=== PATIENT | male | born 1950 | race Caucasian/White ===

== ENCOUNTER 2019-06-05 17:14 | Outpatient (CLI) | payer MEDICARE, OTHER, SELFPAY ==
--- NOTE | ~2019-06-05 | XR_ITS ---
EXAMINATION: XR chest 2V DATE: 06/05/2019 17:33 INDICATION: Upper respiratory tract infection presenting with cough and shortness of breath. TECHNIQUE: frontal and lateral views of the chest were obtained. COMPARISON: Chest radiograph dated 03/24/[address] dated 05/13/2017 FINDINGS: Mild upper lobe predominant emphysema with mild right apical pleural-parenchymal scarring. No focal a irspace opacities, pulmonary edema, pleural effusion or pneumothorax. The cardiomediastinal silhouett e is normal. Visualized bones and soft tissues are unremarkable. IMPRESSION: 1. Emphysema. No acute cardiopulmonary disease. Reviewed, dictated and finalized at location A. 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
== END 2019-06-05 17:15 | disposition home or self-care (01) ==
PROVIDERS: PCP Internal Medicine; Visit Provider Nurse Practitioner Family
DX: J06.9 Acute upper respiratory infection, unspecified (principal)
CPT/HCPCS: 71046

== ENCOUNTER 2019-07-18 09:55 | Outpatient (CLI) | payer MEDICARE, OTHER, SELFPAY ==
--- NOTE | ~2019-07-18 | CT_ITS ---
EXAMINATION: CT lung screening EXAM DATE: 07/18/2019 10:46 INDICATION: Personal history of nicotine dependence. TECHNIQUE: Spiral low dose CT of the chest without contrast. Axial, coronal and sagittal images were reviewed. The dose-length product (DLP) for this examination was 179.69 mGy-cm. The exposure was t ailored according to patient size (auto mA exposure control), and iterative reconstruction (ASIR) was used as additional dose reduction technique. Comparison is made to prior examination from 05/13/2017. FINDINGS: There is moderate emphysema. Previously seen 3 mm nodule is now a punctate one or 2 mm nod ule, post infectious granuloma. There are other small opacities consistent with postinfectious residu a. Tracheobronchial tree is patent. There is no mediastinal, hilar or axillary lymphadenopathy. There are no pleural or pericardial effusions. There is no pneumothorax. Heart normal in size. There is mild coronary arterial calcification, arterial sclerosis. Upper abdomen is unremarkable. T here is mild thoracic spondylosis without osteoblastic or osteolytic lesions identified. IMPRESSION: Lung-RADS category 2, benign appearance or behavior (<1% chance of malignancy); recommend continued LDCT screening in 1 year. Reviewed, dictated and finalized at location B.
--- NOTE | ~2019-07-18 | XR_ITS ---
EXAMINATION: XR chest 2V EXAM DATE: 07/18/2019 10:16 INDICATION: Shortness of breath, cough. COPD. TECHNIQUE: Frontal and lateral projections of the chest obtained and reviewed. Comparison is made to prior examination from 06/05/2019. FINDINGS: Moderate chronic hyperinflation. Mild biapical scarring. The lungs are otherwise clear. T here are no pleural effusions. The cardiomediastinal silhouette is within normal limits. There is n o pneumothorax suspected. The bones and soft tissues are unremarkable. There is no significant inte rval change. IMPRESSION: 1. No acute cardiopulmonary findings. 2. Hyperinflation. Reviewed, dictated and finalized at location B.
[2019-07-18 10:06] LABS: Basophils Absolute Auto 0.06 K/mm3 (0.00-0.10); Eosinophils Absolute Auto 0.22 K/mm3 (0.02-0.50); Eosinophils Percent Auto 3.8 % (1.0-6.0); Hematocrit 44.6 % (37.0-46.0); Immature Granulocyte Absolute 0.01 K/mm3 (0.00-0.00); Immature Granulocyte Percent A 0.2 % (0.0-0.0); Lymphocytes Absolute Auto 1.69 K/mm3 (1.10-4.50); Lymphocytes Percent Auto 28.9 % (18.0-42.0); Mean Corpuscular HGB Conc 33.6 g/dL (32.0-36.0); Mean Corpuscular Hemoglobin 31.8 pg (27.0-31.0); Mean Corpuscular Volume 94.7 fL (78.0-102.0); Mean Platelet Volume 9.2 fl (8.7-11.0); Monocytes Absolute Auto 0.56 K/mm3 (0.10-0.90); Monocytes Percent Auto 9.6 % (2.0-11.0); Neutrophils Absolute Auto 3.3 K/mm3 (1.7-7.2); Neutrophils Percent Auto 56.5 % (50.0-70.0); Platelet Count Result 248 K/mm3 (150-420); Red Blood Count 4.71 M/mm3 (4.70-6.10); Red Cell Distribution Width 12.6 % (11.6-14.4); White Blood Count 5.8 K/mm3 (4.8-10.8)
[2019-07-18 10:36] LABS: BNP 36.3 pg/mL (0-100)
[2019-07-18 11:05] LABS: Alanine Aminotransferase 20 U/L (16-63); Albumin Level 3.6 g/dL (3.4-5.0); Alkaline Phosphatase 108 U/L (46-116); Anion Gap 14.5 mmol/L (7-16); Aspartate Amino Transferase 17 U/L (15-37); Bilirubin,Total 0.5 mg/dL (0.00-1.00); Blood Urea Nitrogen 16 mg/dL (7-18); Calcium 9.1 mg/dL (8.5-10.1); Carbon Dioxide 27 mmol/L (21-32); Chloride 104 mmol/L (98-108); Estimated Glomerular Filt Rate > 60; Glucose 117 mg/dL (70-99); Osmolality Calculated 294 mOsm/kg (285-295); Potassium 4.5 mmol/L (3.5-5.1); Sodium 141 mmol/L (136-145)
== END 2019-07-18 09:56 | disposition home or self-care (01) ==
PROVIDERS: PCP Internal Medicine; Visit Provider Internal Medicine
DX: Z12.2 Encounter for screening for malignant neoplasm of respiratory organs (principal); Z87.891 Personal history of nicotine dependence; R06.00 Dyspnea, unspecified; R05 Cough
CPT/HCPCS: 36415; 71046; 80053; 83880; 85025; G0297

== ENCOUNTER 2019-09-16 10:10 | Outpatient (CLI) | payer MEDICARE, OTHER, SELFPAY | END 2019-09-16 10:11 | disposition home or self-care (01) | PROVIDERS: PCP Internal Medicine; Visit Provider Internal Medicine | DX: J44.9 Chronic obstructive pulmonary disease, unspecified (principal) | CPT/HCPCS: 94060; 94726; 94729 ==

== ENCOUNTER 2020-04-07 12:21 | Outpatient (CLI) | payer MEDICARE, OTHER, SELFPAY ==
--- NOTE | ~2020-04-07 | US_ITS ---
EXAMINATION: US carotid duplex BI EXAM DATE: 04/07/2020 13:08 INDICATION: Carotid stenosis. TECHNIQUE: Grayscale, color and pulsed Doppler images of the cervical carotid arteries were obtained . The degree of vessel stenosis is placed in one of the following categories: normal, <50% stenosis, 50-69% stenosis, >=70% stenosis but less than near-occlusion, near-occlusion, or occlusion. Note that percent stenosis relative to normal distal artery lumen diameter is indirectly measured from velocit y measurements as described by Collin, et al. Radiology 2003; 229:340-346. There is no prior study fo r comparison. FINDINGS: RIGHT SIDE: Right common carotid artery peak systolic velocity (PSV in cm/s): 98 Right bulb/internal carotid artery peak systolic velocity (PSV in cm/s): 86 Right internal carotid artery end diastolic velocity (EDV in cm/s): 34 Right ICA/CCA peak systolic ratio: 0.9 Right external carotid artery peak systolic velocity (PSV in cm/s): 97 Right vertebral artery antegrade flow: yes There is mild carotid bulb plaque. Velocity and Doppler waveforms in the common and internal carotid arteries is normal. LEFT SIDE: Left common carotid artery peak systolic velocity (PSV in cm/s): 76 Left bulb/internal carotid artery peak systolic velocity (PSV in cm/s): 77 Left internal carotid artery end diastolic velocity (EDV in cm/s): 36 Left ICA/CCA peak systolic ratio: 1.0 Left external carotid artery peak systolic velocity (PSV in cm/s): 69 Left vertebral artery antegrade flow: yes There is mild carotid bulb plaque. Velocity and Doppler waveforms in the common and internal carotid arteries is normal. IMPRESSION: 1. Less than 50 percent stenosis in the right internal carotid artery. 2. Less than 50 percent stenosis in the left internal carotid artery. Reviewed, dictated and finalized at location B. R REBUILDER
== END 2020-04-07 12:22 | disposition home or self-care (01) ==
LOC: CHSIMG 12:24
PROVIDERS: PCP Internal Medicine; Visit Provider Internal Medicine
DX: I65.23 Occlusion and stenosis of bilateral carotid arteries (principal)
CPT/HCPCS: 93880

== ENCOUNTER 2021-01-27 09:48 | Outpatient (CLI) | payer MEDICARE, OTHER, SELFPAY ==
--- NOTE | ~2021-01-27 | CT_ITS ---
EXAMINATION: CT lung screening DATE: 01/27/2021 10:27 INDICATION: History of tobacco dependence TECHNIQUE: Computed tomography (CT) of the chest was performed without intravenous contrast. The dose -length product was 183.69 mGy-cm. Automated exposure control and iterative reconstruction technique were employed. COMPARISON: CT dated 07/18/2019 FINDINGS: There are peripheral interstitial changes with areas of interlobular septal thickening and reticular nodularity, likely chronic pulmonary fibrosis. There is emphysema. No endobronchial lesions . There are new areas of focal groundglass opacification particularly in the right lower lobe which m ay relate to chronic interstitial fibrosis, although some acute superimposed infection is not exclude d no endobronchial lesions. There is a subsolid nodule with solid component measuring 5 mm in the rig ht lower lobe which is new compared with prior examination. No endobronchial lesions. IMPRESSION: 1. Lung-RADS category 3: Probably benign. Further evaluation is recommended with noncontrast low-dose chest CT in 6 months. Reviewed, dictated and finalized at location B. IMPRESSION: 1. Lung-RADS category 3: Probably benign. Further evaluation is recommended wit h noncontrast low-dose chest CT in 6 months.
== END 2021-01-27 09:49 | disposition home or self-care (01) ==
LOC: CHSIMG 09:50
PROVIDERS: PCP Internal Medicine; Visit Provider Internal Medicine
DX: Z12.2 Encounter for screening for malignant neoplasm of respiratory organs (principal); Z87.891 Personal history of nicotine dependence
CPT/HCPCS: 71271

== ENCOUNTER 2022-04-07 08:25 | Outpatient (CLI) | payer MEDICARE, OTHER, SELFPAY ==
--- NOTE | ~2022-04-07 | US_ITS ---
Procedure: Duplex Doppler examination of the bilateral carotids. Indication: Carotid stenosis Technique: Real time, color-flow and pulse wave Doppler examination of the bilateral carotids was performed. Findings: Esposito scale ultrasonography of the right neck demonstrated no significant plaque. There was demonstrat ion of normal color-flow and Doppler waveforms within the right common, internal and external carotid arteries. The peak systolic velocities in the right common, internal and external carotid arteries w ere demonstrated to be 85 cm/sec, 54 cm/sec and 69 cm/sec respectively. The right ICA/CCA ratio was 1 .0.The proximal right internal carotid artery demonstrates 0% stenosis relative to the normal distal artery lumen diameter. Esposito scale sonography of the left neck demonstrated small calcified plaque at the origin of the left internal carotid artery. There was demonstration of normal color-flow and wave forms within the left common, internal and external carotid arteries. The peak systolic velocities in the left common, inte rnal and external carotid arteries were demonstrated to be 87cm/sec, 67 cm/sec and 71 cm/sec respecti vely. The left ICA/CCA ratio was 1.4. The proximal left internal carotid artery demonstrates 10% sten osis relative to the normal distal artery lumen diameter. There was antegrade flow demonstrated in the bilateral vertebral arteries. Impression: No hemodynamically significant stenosis of the bilateral internal carotid arteries. Antegrade flow in the bilateral vertebral arteries. Note: The methodology used is an indirect measurement validated against a direct method (such as the NASCET criteria) that compares diameters at the stenosis to the distal ICA. Reviewed, dictated and finalized at location . F BUSINESS OFFICER Impression: No hemodynamically significant stenosis of the bilateral internal carotid arter ies. Antegrade flow in the bilateral vertebral arteries. Note: The methodology used is an indirect measurement validated against a direct meth od (such as the NASCET criteria) that compares diameters at the stenosis to the distal ICA.
== END 2022-04-07 08:26 | disposition home or self-care (01) ==
LOC: CHSIMG 08:27
PROVIDERS: PCP Internal Medicine; Visit Provider Internal Medicine
DX: I65.29 Occlusion and stenosis of unspecified carotid artery (principal)
CPT/HCPCS: 93880

== ENCOUNTER 2022-08-23 09:09 | Outpatient (CLI) | payer MEDICARE, OTHER, SELFPAY ==
--- NOTE | ~2022-08-23 | US_ITS ---
US arterial ankle brachial ind INDICATION: Peripheral vascular disease TECHNIQUE: Segmental pressures and plethysmographic and Doppler waveforms of the brachial and lower e xtremity arteries were obtained. COMPARISON: None. FINDINGS: Right and left brachial artery pressures of 127 mm Hg and 1:30 mm Hg, respectively, are concordant (n ormal difference <= 30 mmHg). The right ankle-brachial index (ROSY) is 1.08 (normal >= 0.9-1.0). The right great toe-brachial index (TBI) is 0.77 (normal >= 0.60). The left ROSY is 1.09. The left TBI is 0.77. IMPRESSION: 1. Normal bilateral ankle and toe brachial indices. Reviewed, dictated and finalized at location L.
--- NOTE | ~2022-08-23 | XR_ITS ---
XR chest 2V 08/23/2022 12:24 Indication: COPD exacerbation. Dyspnea. Procedure: PA and lateral views of the chest Comparison: 07/18/2019 Findings: Right upper lobe airspace consolidation, consistent with pneumonia. Heart size normal. Ther e is mild chronic interstitial lung disease. No pleural effusion or pneumothorax. No acute osseous ab normality. Impression: 1: Right upper lobe pneumonia. Reviewed, dictated and finalized at location L. Impression: 1: Right upper lobe pneumonia.
[2022-08-23 12:14] LABS: Basophils Absolute Auto 0.04 K/mm3 (0.00-0.10); Basophils Percent Auto 0.3 % (0.0-1.0); Eosinophils Absolute Auto 0.01 K/mm3 (0.02-0.50); Eosinophils Percent Auto 0.1 % (1.0-6.0); Hematocrit 39.2 % (37.0-46.0); Hemoglobin 13.3 g/dL (12.4-15.3); Immature Granulocyte Absolute 0.06 K/mm3 (0.00-0.00); Immature Granulocyte Percent A 0.5 % (0.0-0.0); Lymphocytes Absolute Auto 1.44 K/mm3 (1.10-4.50); Lymphocytes Percent Auto 11.6 % (18.0-42.0); Mean Corpuscular HGB Conc 33.9 g/dL (32.0-36.0); Mean Corpuscular Hemoglobin 33.2 pg (27.0-31.0); Mean Corpuscular Volume 97.8 fL (78.0-102.0); Mean Platelet Volume 9.1 fl (8.7-11.0); Monocytes Absolute Auto 1.07 K/mm3 (0.10-0.90); Monocytes Percent Auto 8.6 % (2.0-11.0); Neutrophils Absolute Auto 9.8 K/mm3 (1.7-7.2); Neutrophils Percent Auto 78.9 % (50.0-70.0); Platelet Count Result 261 K/mm3 (150-420); Red Blood Count 4.01 M/mm3 (4.70-6.10); White Blood Count 12.5 K/mm3 (4.8-10.8)
[2022-08-23 12:35] LABS: Alanine Aminotransferase 75 U/L (16-63); Albumin Level 2.6 g/dL (3.4-5.0); Alkaline Phosphatase 95 U/L (46-116); Anion Gap 11 mmol/L (8-16); Aspartate Amino Transferase 72 U/L (15-37); Bilirubin,Total 0.7 mg/dL (0.00-1.00); Blood Urea Nitrogen 25 mg/dL (7-18); Calcium 9.4 mg/dL (8.5-10.1); Carbon Dioxide 27 mmol/L (21-32); Chloride 98 mmol/L (98-108); Estimated Glomerular Filt Rate > 60; Glucose 130 mg/dL (70-99); NT Pro B Type Natriuretic Pept 759 pg/mL (0-125); Osmolality Calculated 288 mOsm/kg (285-295); Potassium 4.1 mmol/L (3.5-5.1); Sodium 136 mmol/L (136-145); Total Protein 8.1 g/dL (6.4-8.2)
== END 2022-08-23 09:10 | disposition home or self-care (01) ==
PROVIDERS: PCP Internal Medicine; Visit Provider Internal Medicine
DX: I73.9 Peripheral vascular disease, unspecified (principal); J44.1 Chronic obstructive pulmonary disease with (acute) exacerbation; R06.00 Dyspnea, unspecified; J18.9 Pneumonia, unspecified organism
CPT/HCPCS: 36415; 71046; 80053; 83880; 85025; 93922

== ENCOUNTER 2022-08-30 10:55 | Outpatient (CLI) | payer MEDICARE, OTHER, SELFPAY ==
--- NOTE | ~2022-08-30 | XR_ITS ---
XR chest 2V 08/30/2022 11:24 Indication: Pneumonia follow-up Procedure: 2 view chest Comparison: Comparison to multiple prior studies sequentially, with oldest reviewed study dated 06/05. Findings: There is extensive right upper lobe consolidation, unchanged from 08/23/2022, consistent wit h pneumonia. There is left upper lobe scarring. Heart size normal. There is mild chronic interstitial lung disease in the lung bases. Impression: 1: Stable right upper lobe consolidation, consistent with pneumonia, superimposed on chronic intersti tial fibrosis. Reviewed, dictated and finalized at location L. Impression: 1: Stable right upper lobe consolidation, consistent with pneumonia, superimpos ed on chronic interstitial fibrosis.
[2022-08-30 11:12] LABS: Basophils Absolute Auto 0.04 K/mm3 (0.00-0.10); Basophils Percent Auto 0.4 % (0.0-1.0); Eosinophils Absolute Auto 0.48 K/mm3 (0.02-0.50); Eosinophils Percent Auto 4.2 % (1.0-6.0); Hematocrit 38.9 % (37.0-46.0); Hemoglobin 12.9 g/dL (12.4-15.3); Immature Granulocyte Absolute 0.28 K/mm3 (0.00-0.00); Immature Granulocyte Percent A 2.5 % (0.0-0.0); Immature Platelet Fraction Pct 1.1 % (1.0-7.0); Lymphocytes Absolute Auto 3.44 K/mm3 (1.10-4.50); Lymphocytes Percent Auto 30.4 % (18.0-42.0); Mean Corpuscular HGB Conc 33.2 g/dL (32.0-36.0); Mean Corpuscular Hemoglobin 32.6 pg (27.0-31.0); Mean Corpuscular Volume 98.2 fL (78.0-102.0); Mean Platelet Volume 8.7 fl (8.7-11.0); Monocytes Absolute Auto 0.72 K/mm3 (0.10-0.90); Monocytes Percent Auto 6.4 % (2.0-11.0); Neutrophils Absolute Auto 6.4 K/mm3 (1.7-7.2); Neutrophils Percent Auto 56.1 % (50.0-70.0); Platelet Count Result 657 K/mm3 (150-420); Red Blood Count 3.96 M/mm3 (4.70-6.10); White Blood Count 11.3 K/mm3 (4.8-10.8)
[2022-08-30 12:04] LABS: Alanine Aminotransferase 200 U/L (16-63); Albumin Level 2.4 g/dL (3.4-5.0); Alkaline Phosphatase 99 U/L (46-116); Anion Gap 9 mmol/L (8-16); Aspartate Amino Transferase 58 U/L (15-37); Bilirubin,Total 0.3 mg/dL (0.00-1.00); Blood Urea Nitrogen 25 mg/dL (7-18); Calcium 8.7 mg/dL (8.5-10.1); Carbon Dioxide 27 mmol/L (21-32); Chloride 102 mmol/L (98-108); Estimated Glomerular Filt Rate > 60; Glucose 102 mg/dL (70-99); NT Pro B Type Natriuretic Pept 482 pg/mL (0-125); Osmolality Calculated 290 mOsm/kg (285-295); Potassium 4.3 mmol/L (3.5-5.1); Sodium 138 mmol/L (136-145); Total Protein 6.4 g/dL (6.4-8.2)
== END 2022-08-30 10:56 | disposition home or self-care (01) ==
LOC: CHSLAB 10:58
PROVIDERS: PCP Internal Medicine; Visit Provider Internal Medicine
DX: J18.9 Pneumonia, unspecified organism (principal); R06.02 Shortness of breath; R91.8 Other nonspecific abnormal finding of lung field
CPT/HCPCS: 36415; 71046; 80053; 83880; 85025; 85055

== ENCOUNTER 2022-09-12 09:49 | Outpatient (CLI) | payer MEDICARE, OTHER, SELFPAY ==
--- NOTE | ~2022-09-12 | XR_ITS ---
Clinical Indication: Pneumonia, COPD PA and lateral views of the chest: Comparison: 08/30/2022 Findings: Extensive right upper lobe airspace disease is again present, unchanged. There is worsening left upper lobe airspace disease, though less extensive than the right. Underlying COPD probably pre sent. No pleural effusion or pneumothorax.. Cardiomediastinal silhouette is within normal limits. Daryl hiram and soft tissues are unremarkable. Impression: Stable right upper lobe space disease, with worsening left upper lobe airspace disease. Findings sugg est interval worsening/spread of pneumonia. Possible underlying chronic bilateral upper lobe interstitial disease. Reviewed, dictated and finalized at location . Impression: Stable right upper lobe space disease, with worsening left upper lobe airspace disease. Findings suggest interval worsening/spread of pneumonia. Possible underlying chronic bilateral upper lobe interstitial disease.
== END 2022-09-12 09:50 | disposition home or self-care (01) ==
PROVIDERS: PCP Internal Medicine; Visit Provider Internal Medicine
DX: J18.9 Pneumonia, unspecified organism (principal); R91.8 Other nonspecific abnormal finding of lung field
CPT/HCPCS: 71046

== ENCOUNTER 2022-09-26 08:14 | Outpatient (CLI) | payer MEDICARE, OTHER, SELFPAY ==
--- NOTE | ~2022-09-26 | XR_ITS ---
XR chest 2V 09/26/2022 08:32 Indication: Follow-up pneumonia Procedure: PA and lateral views of the chest Comparison: Comparison to multiple prior studies sequentially, with oldest reviewed study dated 12/2019. Findings: There is coarse interstitial lung disease with upper lobe preference. Heart size normal. Fi ndings have progressed since 08/23/2022. Heart size normal. No pleural effusion or pneumothorax. No ac [place] osseous abnormality. Impression: 1: Progression of coarse interstitial lung disease with upper lobe preference. Consider fibrotic hype rsensitivity pneumonitis, nonspecific interstitial pneumonitis and usual interstitial pneumonia. Lexie ot exclude superimposed atypical pneumonia. Reviewed, dictated and finalized at location [] Impression: 1: Progression of coarse interstitial lung disease with upper lobe preference. Consider fibrotic hypersensitivity pneumonitis, nonspecific interstitial pneumo nitis and usual interstitial pneumonia. Cannot exclude superimposed atypical pn eumonia.
[2022-09-26 10:38] LABS: Basophils Absolute Auto 0.07 K/mm3 (0.00-0.10); Basophils Percent Auto 0.9 % (0.0-1.0); Eosinophils Absolute Auto 0.15 K/mm3 (0.02-0.50); Eosinophils Percent Auto 1.9 % (1.0-6.0); Hematocrit 36.3 % (37.0-46.0); Hemoglobin 11.7 g/dL (12.4-15.3); Immature Granulocyte Absolute 0.03 K/mm3 (0.00-0.00); Immature Granulocyte Percent A 0.4 % (0.0-0.0); Lymphocytes Percent Auto 23.5 % (18.0-42.0); Mean Corpuscular HGB Conc 32.2 g/dL (32.0-36.0); Mean Corpuscular Hemoglobin 31.3 pg (27.0-31.0); Mean Corpuscular Volume 97.1 fL (78.0-102.0); Mean Platelet Volume 8.5 fl (8.7-11.0); Monocytes Absolute Auto 0.54 K/mm3 (0.10-0.90); Monocytes Percent Auto 6.7 % (2.0-11.0); Neutrophils Absolute Auto 5.4 K/mm3 (1.7-7.2); Neutrophils Percent Auto 66.6 % (50.0-70.0); Platelet Count Result 386 K/mm3 (150-420); Red Blood Count 3.74 M/mm3 (4.70-6.10); Red Cell Distribution Width 12.4 % (11.6-14.4); White Blood Count 8.1 K/mm3 (4.8-10.8)
[2022-09-26 11:30] LABS: Alanine Aminotransferase 33 U/L (16-63); Albumin Level 3.1 g/dL (3.4-5.0); Alkaline Phosphatase 118 U/L (46-116); Anion Gap 10 mmol/L (8-16); Aspartate Amino Transferase 24 U/L (15-37); Bilirubin,Total 0.3 mg/dL (0.00-1.00); Blood Urea Nitrogen 18 mg/dL (7-18); Calcium 9.2 mg/dL (8.5-10.1); Carbon Dioxide 28 mmol/L (21-32); Chloride 101 mmol/L (98-108); Estimated Glomerular Filt Rate > 60; Glucose 113 mg/dL (70-99); NT Pro B Type Natriuretic Pept 568 pg/mL (0-125); Osmolality Calculated 290 mOsm/kg (285-295); Potassium 4.5 mmol/L (3.5-5.1); Sodium 139 mmol/L (136-145); Total Protein 7.2 g/dL (6.4-8.2)
[2022-09-30 14:07] LABS: C. pneumoniae Ab (IgG) <1:64 (<1:64); C. pneumoniae Ab (IgM) <1:10 (<1:10); C. psittaci Ab (IgG) <1:64 (<1:64); C. psittaci Ab (IgM) <1:10 (<1:10); C. trachomatis Ab (IgG) <1:64 (<1:64); C. trachomatis Ab (IgM) <1:10 (<1:10)
[2022-10-03 17:19] LABS: H Band Histoplasma Negative (Negative); M Band Histoplasma Negative (Negative)
[2022-10-03 17:27] LABS: Coccidioides Ab to F Ag (IgG) NEGATIVE; Coccidioides Ab to TP Ag (IgM) NEGATIVE
== END 2022-09-26 08:15 | disposition home or self-care (01) ==
PROVIDERS: PCP Internal Medicine; Visit Provider Internal Medicine
DX: J18.9 Pneumonia, unspecified organism (principal); R91.8 Other nonspecific abnormal finding of lung field; I50.9 Heart failure, unspecified
CPT/HCPCS: 36415; 71046; 80053; 83880; 85025; 86631; 86632; 86635; 86698; 86738

== ENCOUNTER 2022-09-30 10:46 | Outpatient (CLI) | payer MEDICARE, OTHER, SELFPAY ==
--- NOTE | ~2022-09-30 | CT_ITS ---
CT Scan of the Chest without Contrast: Clinical Indication: Pneumonia, COPD Technique: Contiguous sections were acquired throughout the chest without intravenous contrast. Dose reduction technique was used on this scan by utilizing automated exposure control and iterative recon struction technique. The dose-length product (DLP) was 240.38 mGy-cm. COMPARISON: 01/27/2021 Findings: There is no evidence of any significant mediastinal, hilar or axillary lymphadenopathy. There are ath erosclerotic calcifications of the aorta and coronary arteries. There is no evidence of pleural or pericardial effusion. There is chronic interstitial pulmonary disease, with peripheral distribution. There is severe emphys liban and/or chronic interstitial disease at the upper lobes/apices, which appears remarkably progresse d from prior exam. Extensive increased density at the lung apices could reflect superimposed bilatera l upper lobe pneumonia. Images through the upper abdomen reveal no abnormalities. Impression: Worsening chronic interstitial disease, especially at the lung apices. Suspected superimposed biapical pneumonia. Correlate with symptomatology. Reviewed, dictated and finalized at [facility]. Impression: Worsening chronic interstitial disease, especially at the lung apices. Suspected superimposed biapical pneumonia. Correlate with symptomatology.
== END 2022-09-30 10:47 | disposition home or self-care (01) ==
LOC: CHSIMG 10:48
PROVIDERS: PCP Internal Medicine; Visit Provider Internal Medicine
DX: J18.9 Pneumonia, unspecified organism (principal); R91.8 Other nonspecific abnormal finding of lung field
CPT/HCPCS: 71250

== ENCOUNTER 2022-10-10 10:11 | Outpatient (CLI) | payer MEDICARE, OTHER, SELFPAY ==
--- NOTE | 2022-10-10 09:00 | ECHO_ITS ---
Patient Info Name: Johny Prieto Age: 72 years : 1950 Gender: Male Ht: 71 in Wt: 195 lbs BSA: 2.12 m2 HR: 96 bpm BP: 165 / 95 mmHg Technical Quality: Fair Exam Date: 10/10/2022 10:38 AM Exam Location: [facility] Patient Status: Outpatient Admit Date: 10/10/2022 Staff Ordering Physician: Suzy Mills MD Business Intelligence Manager: Armando Rivera RDCS Attending Provider: Suzy Mills MD Referring Physician: Gene KANG; Exam Type: CA echo doppler color flow Study Info Indications - sob/chf Complete two-dimensional, color flow and Doppler transthoracic echocardiogram is performed. Summary 1. Complete two-dimensional, color flow and Doppler transthoracic echocardiogram is performed. 2. Left ventricular chamber dimension is normal. 3. Left ventricular systolic function is normal, estimated at 55-60%. 4. The left ventricular diastolic function is grade I diastolic dysfunction. 5. E/e' 6 is not elevated. Left Ventricle E/e' 6 is not elevated. Left ventricular chamber dimension is normal. Left ventricular systolic function is normal, estimated at 55-60%. The left ventricular diastolic function is grade I diastolic dysfunction. Right Ventricle Right ventricular systolic function is normal and with normal TAPSE 3.3 cm. Right ventricular chamber dimension is normal. Left Atria Left atrial chamber dimension is normal. Right Atria Right atrial chamber dimension is normal. Aortic Valve The aortic valve is trileaflet. There is no aortic valve stenosis. There is no aortic valve regurgitation. Pulmonic Valve There is no pulmonic regurgitation. Mitral Valve There is no mitral valve stenosis. There is no mitral valve regurgitation. Tricuspid Valve There is no tricuspid valve regurgitation. Pericardium/Pleural There is no pericardial effusion. Inferior Vena Cava Normal inferior vena cava with >50% collapse upon inspiration consistent with normal right atrial pressure, 5 mmHg. Aorta The aortic root size at the sinus of Valsalva is normal. Left Ventricular Outflow Tract Name Value Normal LVOT 2D LVOT Diameter 2.0 cm LVOT Doppler LVOT Peak Velocity 87 cm/s LVOT Peak Gradient 3 mmHg LVOT Mean Gradient 1 mmHg LVOT VTI 22 cm LVOT VTI/AV VTI Ratio 0.9 LVOT Stroke Volume 70 ml Pulmonic Valve Name Value Normal RVOT Doppler RVOT Peak Gradient 2 mmHg PV Doppler PV Peak Velocity 85 cm/s PV Peak Gradient 3 mmHg Mitral Valve Name Value Normal MV Doppler
== END 2022-10-10 10:12 | disposition home or self-care (01) ==
LOC: CHSIMG 10:13
PROVIDERS: PCP Internal Medicine; Visit Provider Internal Medicine
DX: R06.02 Shortness of breath (principal); I50.9 Heart failure, unspecified
CPT/HCPCS: 93306

== ENCOUNTER 2022-11-07 11:34 | Outpatient (CLI) | payer MEDICARE, OTHER, SELFPAY ==
--- NOTE | ~2022-11-07 | CT_ITS ---
EXAMINATION: CTA chest PE protocol DATE: 11/07/2022 12:50 INDICATION: Hypoxia. Dyspnea. TECHNIQUE: Computed tomography (CT) pulmonary angiogram of the chest was performed with 100 mL Omnipa que-350 intravenous contrast. Additional 3D reconstructions utilizing coronal maximum intensity proje ction (MIP) were performed. Automated exposure control and iterative reconstruction technique were em ployed. The dose-length product was 392.12 mGy-cm. COMPARISON: 09/30/2022 FINDINGS: Good but suboptimal contrast opacification of the pulmonary arteries. There is mild streak artifact f rom dense contrast in the superior vena cava and right atrium. Minimal scattered respiratory motion a rtifact which does not significantly limit evaluation. No pulmonary embolism. Moderate emphysema with upper lung predominance. Coarse peripheral interstitial pattern with irregular septal line thickenin g consistent with chronic interstitial lung disease in either usual interstitial pneumonia (UIP) or n onspecific interstitial pneumonia (NSIP) pattern. There are residual groundglass opacities at the sit es of the previous more dense consolidation in the bilateral upper lobes which likely represents reso lving pneumonia. No new or worsening airspace opacities, pleural effusion or pneumothorax. Heart size is normal. Atherosclerotic coronary artery calcifications. No pericardial effusion. Thoracic aorta i s normal in caliber with no dissection. No pathologically enlarged thoracic lymphadenopathy. Mild tho racic spondylosis. IMPRESSION: 1. No pulmonary embolism. 2. Improving lung disease in the upper lobes, with residual groundglass opacities at the sites of pre viously more dense consolidation likely representing improving pneumonia. 3. Otherwise stable appearance of more diffuse moderate emphysema with peripheral predominant UIP melinda leonardo NSIP pattern chronic interstitial lung disease. Reviewed, dictated and finalized at location B. IMPRESSION: 1. No pulmonary embolism. 2. Improving lung disease in the upper lobes, with residual groundglass opaciti es at the sites of previously more dense consolidation likely representing impr oving pneumonia. 3. Otherwise stable appearance of more diffuse moderate emphysema with peripher al predominant UIP versus NSIP pattern chronic interstitial lung disease.
[2022-11-07 12:24] LABS: Estimated Glomerular Filt Rate > 60
== END 2022-11-07 11:35 | disposition home or self-care (01) ==
LOC: CHSIMG 11:36
PROVIDERS: PCP Internal Medicine; Visit Provider Internal Medicine
DX: R06.00 Dyspnea, unspecified (principal); R09.02 Hypoxemia; J98.4 Other disorders of lung; J43.9 Emphysema, unspecified; J84.89 Other specified interstitial pulmonary diseases
CPT/HCPCS: 71275; Q9967

== ENCOUNTER 2022-12-01 15:28 | Outpatient (CLI) | payer MEDICARE, OTHER, SELFPAY ==
--- NOTE | ~2022-12-01 | XR_ITS ---
XR chest 2V 12/01/2022 15:54 Indication: Shortness of breath. History of COPD. Procedure: PA and lateral views the chest Comparison: Comparison to multiple prior studies sequentially, with oldest reviewed study dated 08/2022. Findings: There is improving bilateral upper lobe airspace consolidation with superimposed pulmonary fibrosis. Heart size normal. No pleural effusion or pneumothorax. No acute osseous abnormality. Impression: 1: Improving bilateral upper lobe airspace disease, consistent with resolving pneumonia. 2: Chronic coarse bilateral interstitial infiltrates, consistent with pulmonary fibrosis. Reviewed, dictated and finalized at location L. Impression: 1: Improving bilateral upper lobe airspace disease, consistent with resolving p neumonia. 2: Chronic coarse bilateral interstitial infiltrates, consistent with pulmonary fibrosis.
[2022-12-01 15:44] LABS: Basophils Absolute Auto 0.09 K/mm3 (0.00-0.10); Basophils Percent Auto 0.8 % (0.0-1.0); Eosinophils Absolute Auto 0.49 K/mm3 (0.02-0.50); Eosinophils Percent Auto 4.6 % (1.0-6.0); Hematocrit 39.8 % (37.0-46.0); Hemoglobin 13.1 g/dL (12.4-15.3); Immature Granulocyte Absolute 0.03 K/mm3 (0.00-0.00); Immature Granulocyte Percent A 0.3 % (0.0-0.0); Lymphocytes Absolute Auto 3.23 K/mm3 (1.10-4.50); Lymphocytes Percent Auto 30.4 % (18.0-42.0); Mean Corpuscular HGB Conc 32.9 g/dL (32.0-36.0); Mean Corpuscular Hemoglobin 31.7 pg (27.0-31.0); Mean Corpuscular Volume 96.4 fL (78.0-102.0); Mean Platelet Volume 9.2 fl (8.7-11.0); Monocytes Absolute Auto 0.66 K/mm3 (0.10-0.90); Monocytes Percent Auto 6.2 % (2.0-11.0); Neutrophils Absolute Auto 6.1 K/mm3 (1.7-7.2); Neutrophils Percent Auto 57.7 % (50.0-70.0); Platelet Count Result 208 K/mm3 (150-420); Red Blood Count 4.13 M/mm3 (4.70-6.10); Red Cell Distribution Width 13.6 % (11.6-14.4); White Blood Count 10.6 K/mm3 (4.8-10.8)
[2022-12-01 15:57] LABS: Alanine Aminotransferase 8 U/L (16-63); Albumin Level 3.5 g/dL (3.4-5.0); Alkaline Phosphatase 128 U/L (46-116); Anion Gap 9 mmol/L (8-16); Aspartate Amino Transferase 10 U/L (15-37); Bilirubin,Total 1.1 mg/dL (0.00-1.00); Blood Urea Nitrogen 18 mg/dL (7-18); Calcium 9.4 mg/dL (8.5-10.1); Carbon Dioxide 29 mmol/L (21-32); Chloride 99 mmol/L (98-108); Estimated Glomerular Filt Rate 53; Glucose 96 mg/dL (70-99); Osmolality Calculated 285 mOsm/kg (285-295); Potassium 3.7 mmol/L (3.5-5.1); Sodium 137 mmol/L (136-145)
== END 2022-12-01 15:29 | disposition home or self-care (01) ==
LOC: CHSLAB 15:31
PROVIDERS: PCP Internal Medicine; Visit Provider Internal Medicine
DX: R06.02 Shortness of breath (principal); J44.1 Chronic obstructive pulmonary disease with (acute) exacerbation; R91.8 Other nonspecific abnormal finding of lung field
CPT/HCPCS: 36415; 71046; 80053; 85025

== ENCOUNTER 2022-12-26 10:43 | Outpatient (CLI) | payer MEDICARE, OTHER, SELFPAY ==
--- NOTE | ~2022-12-26 | XR_ITS ---
Clinical Indication: COPD PA and lateral views of the chest: Comparison: 12/01/2022 Findings: There is upper lobe predominant chronic appearing interstitial change. No suspicious consol idation or pleural effusion. No pneumothorax.. Cardiomediastinal silhouette is within normal limits. Bones and soft tissues are unremarkable. Impression: Upper lobe prominent chronic interstitial disease with probable underlying COPD. Reviewed, dictated and finalized at location . Impression: Upper lobe prominent chronic interstitial disease with probable underlying COPD .
[2022-12-26 11:08] LABS: Basophils Absolute Auto 0.05 K/mm3 (0.00-0.10); Basophils Percent Auto 0.7 % (0.0-1.0); Eosinophils Absolute Auto 0.55 K/mm3 (0.02-0.50); Eosinophils Percent Auto 7.6 % (1.0-6.0); Hematocrit 42.2 % (37.0-46.0); Hemoglobin 14.1 g/dL (12.4-15.3); Immature Granulocyte Absolute 0.02 K/mm3 (0.00-0.00); Immature Granulocyte Percent A 0.3 % (0.0-0.0); Lymphocytes Absolute Auto 2.72 K/mm3 (1.10-4.50); Lymphocytes Percent Auto 37.7 % (18.0-42.0); Mean Corpuscular HGB Conc 33.4 g/dL (32.0-36.0); Mean Corpuscular Hemoglobin 31.8 pg (27.0-31.0); Mean Corpuscular Volume 95.3 fL (78.0-102.0); Monocytes Absolute Auto 0.46 K/mm3 (0.10-0.90); Monocytes Percent Auto 6.4 % (2.0-11.0); Neutrophils Absolute Auto 3.4 K/mm3 (1.7-7.2); Neutrophils Percent Auto 47.3 % (50.0-70.0); Platelet Count Result 252 K/mm3 (150-420); Red Blood Count 4.43 M/mm3 (4.70-6.10); Red Cell Distribution Width 13.4 % (11.6-14.4); White Blood Count 7.2 K/mm3 (4.8-10.8)
[2022-12-26 11:27] LABS: Alanine Aminotransferase 16 U/L (16-63); Albumin Level 3.1 g/dL (3.4-5.0); Alkaline Phosphatase 114 U/L (46-116); Anion Gap 8 mmol/L (8-16); Aspartate Amino Transferase 11 U/L (15-37); Bilirubin,Total 0.6 mg/dL (0.00-1.00); Blood Urea Nitrogen 20 mg/dL (7-18); Calcium 9.3 mg/dL (8.5-10.1); Carbon Dioxide 28 mmol/L (21-32); Chloride 102 mmol/L (98-108); Estimated Glomerular Filt Rate > 60; Glucose 140 mg/dL (70-99); Osmolality Calculated 290 mOsm/kg (285-295); Potassium 3.9 mmol/L (3.5-5.1); Sodium 138 mmol/L (136-145); Total Protein 7.7 g/dL (6.4-8.2)
[2022-12-29 19:16] LABS: Immunoglobulin E 79 kU/L (<=114)
[2023-01-02 15:48] LABS: Alpha-1-Antitrypsin, QN 248 mg/dL (83-199)
== END 2022-12-26 10:44 | disposition home or self-care (01) ==
LOC: CHSLAB 10:46
PROVIDERS: PCP Internal Medicine; Visit Provider Internal Medicine
DX: J44.1 Chronic obstructive pulmonary disease with (acute) exacerbation (principal); J84.9 Interstitial pulmonary disease, unspecified
CPT/HCPCS: 36415; 71046; 80053; 82103; 82785; 85025

== ENCOUNTER 2023-01-20 10:29 | Outpatient (CLI) | payer MEDICARE, OTHER, SELFPAY ==
--- NOTE | ~2023-01-20 | DEXA_ITS ---
Bone Density Report Name: TRE DESHPANDE Age: 72 Sex: Male Ethnicity: White Date of : 1950 Indication: screening for osteoporosis; height loss; cancer; asthma or emphysema; Referring Provider: Suzy Mills Study: Bone densitometry was performed. Exam Date: January 20, 2023 Accession number: [id number] Bone Density: Region BMD T-score Z-score Classification AP Spine(L1, L3, L4) 1.005 -0.8 0.1 Normal Femoral Neck (Left) 0.636 -2.2 -1.0 Osteopenia Total Hip (Left) 0.774 -1.7 -1.0 Osteopenia Femoral Neck (Right) 0.647 -2.1 -0.9 Osteopenia Total Hip (Right) 0.803 -1.5 -0.8 Osteopenia Femoral Neck Mean 0.641 -2.1 -0.9 Osteopenia Total Hip Mean 0.789 -1.6 -0.9 Osteopenia World Health Organization criteria for BMD impression classify patients as: Normal (T-score at or above -1.0), Osteopenia (T-score between -1.0 and -2.5), or Osteoporosis (T-score at or below -2.5). 10-year Fracture Risk(1): Major Osteoporotic Fracture 8.8% Hip Fracture 2.7% Reported Risk Factors: [place] (), Neck BMD=0.636, BMI=26.4 (1) FRAX(R) Version 3.08. Fracture probability calculated for an untreated patient. Fracture probability may be lower if the patient has received treatment. Clinical Information Provided by Patient: Has the following medical conditions: Asthma or Emphysema, Cancer Patient maximum height was 73 Drinks caffeinated beverages Impression: The patient has low bone mass, based on the Left Femoral Neck T-score. Discussion: BONE DENSITY IS LOW AT ONE OR MORE SKELETAL SITES. This patient's lowest T-score is low at one or more skeletal sites. It meets the World Health Organization's (WHO) criteria for ?low bone mass? (T-score between -1.0 and -2.5). The patient's 10-year risk of fracture as calculated by FRAX is less than the threshold where pharmacological therapy is recommended by the National Osteoporosis Foundation (NOF). However, all treatment decisions require clinical judgment and consideration of individual patient factors, including patient preferences, comorbidities, previous drug use, risk factors not captured in the FRAX model (e.g., frailty, falls, vitamin D deficiency, increased bone turnover, interval significant decline in bone density) and possible under or overestimation of fracture risk by FRAX. The patient should follow a healthful lifestyle (good nutrition with adequate calcium and vitamin D, and appropriate weight-bearing exercise). Follow-Up: Consider repeating this study in 2 to 3 years to reassess this patient's status, or sooner if there is some new clinical indication. Reported by: Dr. Oseas Horvath on 01/20/2023 10:54:00 AM. Reviewed, dictated and finalized at location A.
== END 2023-01-20 10:30 | disposition home or self-care (01) ==
LOC: CHSIMG 10:30
PROVIDERS: PCP Internal Medicine; Visit Provider Internal Medicine
DX: M81.8 Other osteoporosis without current pathological fracture (principal); M85.89 Other specified disorders of bone density and structure, multiple sites
CPT/HCPCS: 77080

== ENCOUNTER 2023-01-30 11:12 | Outpatient (CLI) | payer MEDICARE, OTHER, SELFPAY ==
--- NOTE | ~2023-01-30 | XR_ITS ---
Clinical Indication: COPD exacerbation PA and lateral views of the chest: Comparison: 12/26/2022 Findings: There is probable COPD with biapical chronic interstitial change. Cardiomediastinal silhou ette is within normal limits. Bones and soft tissues are unremarkable. Impression: Probable COPD with biapical/bilateral upper lobe chronic interstitial change. Reviewed, dictated and finalized at location . Impression: Probable COPD with biapical/bilateral upper lobe chronic interstitial change.
[2023-01-30 11:33] LABS: Basophils Absolute Auto 0.09 K/mm3 (0.00-0.10); Basophils Percent Auto 1.1 % (0.0-1.0); Eosinophils Absolute Auto 0.32 K/mm3 (0.02-0.50); Eosinophils Percent Auto 3.9 % (1.0-6.0); Hematocrit 42.6 % (37.0-46.0); Hemoglobin 14.3 g/dL (12.4-15.3); Immature Granulocyte Absolute 0.02 K/mm3 (0.00-0.00); Immature Granulocyte Percent A 0.2 % (0.0-0.0); Lymphocytes Absolute Auto 2.11 K/mm3 (1.10-4.50); Lymphocytes Percent Auto 25.7 % (18.0-42.0); Mean Corpuscular HGB Conc 33.6 g/dL (32.0-36.0); Mean Corpuscular Hemoglobin 32.1 pg (27.0-31.0); Mean Corpuscular Volume 95.5 fL (78.0-102.0); Mean Platelet Volume 9.1 fl (8.7-11.0); Monocytes Absolute Auto 0.59 K/mm3 (0.10-0.90); Monocytes Percent Auto 7.2 % (2.0-11.0); Neutrophils Absolute Auto 5.1 K/mm3 (1.7-7.2); Neutrophils Percent Auto 61.9 % (50.0-70.0); Platelet Count Result 285 K/mm3 (150-420); Red Blood Count 4.46 M/mm3 (4.70-6.10); Red Cell Distribution Width 13.6 % (11.6-14.4); White Blood Count 8.2 K/mm3 (4.8-10.8)
[2023-01-30 11:48] LABS: Alanine Aminotransferase 22 U/L (16-63); Albumin Level 3.3 g/dL (3.4-5.0); Alkaline Phosphatase 106 U/L (46-116); Anion Gap 8 mmol/L (8-16); Aspartate Amino Transferase 12 U/L (15-37); Bilirubin,Total 0.6 mg/dL (0.00-1.00); Blood Urea Nitrogen 19 mg/dL (7-18); Calcium 9.9 mg/dL (8.5-10.1); Carbon Dioxide 29 mmol/L (21-32); Chloride 102 mmol/L (98-108); Estimated Glomerular Filt Rate > 60; Glucose 115 mg/dL (70-99); Osmolality Calculated 291 mOsm/kg (285-295); Potassium 3.9 mmol/L (3.5-5.1); Sodium 139 mmol/L (136-145); Total Protein 7.4 g/dL (6.4-8.2)
[2023-01-30 12:25] LABS: Strep Group A RT-PCR NOT DETECTED (Negative)
[2023-01-30 12:36] LABS: Influenza A QL RT-PCR Negative (Negative); Influenza B QL RT-PCR Negative (Negative); SARS-CoV-2 RNA PCR Negative (Negative)
[2023-01-30 12:40] LABS: RSV RNA, RT-PCR Negative (Negative)
== END 2023-01-30 11:13 | disposition home or self-care (01) ==
LOC: CHSLAB 11:15
PROVIDERS: PCP Internal Medicine; Visit Provider Internal Medicine
DX: J44.1 Chronic obstructive pulmonary disease with (acute) exacerbation (principal); R91.8 Other nonspecific abnormal finding of lung field; Z20.822 Contact with and (suspected) exposure to COVID-19
CPT/HCPCS: 36415; 71046; 80053; 85025; 87637; 87651

== ENCOUNTER 2023-02-06 11:31 | Outpatient (CLI) | payer MEDICARE, OTHER, SELFPAY ==
--- NOTE | ~2023-02-06 | XR_ITS ---
XR shoulder LT min 2V DATE: 02/06/2023 11:54 INDICATION: Left shoulder pain, limited range of motion TECHNIQUE: 4 views COMPARISON: None FINDINGS: Normal alignment at the acromioclavicular and glenohumeral joints. No fracture or dislocati on, periosteal reaction or bone destruction or abnormal soft tissue calcification. IMPRESSION: No significant abnormality Reviewed, dictated and finalized at location B. IMPRESSION: No significant abnormality
== END 2023-02-06 11:32 | disposition home or self-care (01) ==
PROVIDERS: PCP Internal Medicine; Visit Provider Internal Medicine
DX: M25.512 Pain in left shoulder (principal)
CPT/HCPCS: 73030

== ENCOUNTER 2023-02-16 07:22 | Outpatient (CLI) | payer MEDICARE, OTHER, SELFPAY ==
--- NOTE | ~2023-02-16 | MR_ITS ---
MRI of the left shoulder Technique: Axial proton-density fat-sat images, coronal proton density fat-sat and T2 fat-sat images, and sagittal T1-weighted and T2 fat-sat images were acquired. Clinical History: Pain Findings: There is moderate AC joint degenerative change, with bony productive change at the distal c lavicle, and small subacromial spur. Coracoclavicular, coracoacromial, and coracohumeral ligaments ar e intact. Supraspinatus and infraspinatus tendons are intact, without partial or full-thickness tear. There is mild tendinosis. Subscapularis tendon is intact with mild to moderate tendinosis. Tendon of the long head of the biceps is intact. There is a tear extending predominantly from the superior labrum through the posterior superior, post erior, and posterior inferior portions. Inferior glenohumeral ligament is intact. There is mild chondromalacia of the glenohumeral joint. No joint effusion the glenohumeral joint. No fluid distention of the subacromial/subdeltoid bursa. No mu scle atrophy or edema evident. Impression: Probable superior labral tear, with extension through the posterior superior, posterior, and posterio r inferior portions. Moderate AC joint degenerative change. Mild glenohumeral joint degenerative change. Rotator cuff tendinosis without evidence of tear. Reviewed, dictated and finalized at location . [employer] WORK[employer] Impression: Probable superior labral tear, with extension through the posterior superior, p osterior, and posterior inferior portions. Moderate AC joint degenerative change. Mild glenohumeral joint degenerative humphrey nge. Rotator cuff tendinosis without evidence of tear.
== END 2023-02-16 07:23 | disposition home or self-care (01) ==
LOC: CHSIMG 07:24
PROVIDERS: PCP Internal Medicine; Visit Provider Internal Medicine
DX: M25.512 Pain in left shoulder (principal); M77.8 Other enthesopathies, not elsewhere classified
CPT/HCPCS: 73221

== ENCOUNTER 2023-02-22 08:55 | Outpatient (RCR) | payer MEDICARE, OTHER, SELFPAY ==
--- NOTE | 2023-02-22 10:16 | OPREHPOC ---
Outpatient Therapy Plan of Care This is a Multidisciplinary Plan of Care that may contain components documented by all disciplines (PT, OT, and ST.) PT Problem 1 PT Problem #1 Knowledge Deficit PT Goal 1 Goal 1. independent and compliant with HEP Target Visit 6 PT Problem 2 PT Problem #2 Impaired Range of Motion PT Goal 1 Goal 1. active L shoulder flexion to 150 degrees or better x10 reps consecutively 2. active L shoulder abduction to 150 degrees or better x10 reps consecutively Target Visit 12 PT Problem 3 PT Problem #3 Impaired Strength PT Goal 1 Goal 1. improve L shoulder flexion and abuction strength to 4/5 or better 2. improve L shoulder ER to 4/5 or better Target Visit 12 PT Problem 4 PT Problem #4 Impaired Functional Mobil PT Goal 1 Goal 1. functional ER reach behind head to the cervical spine with the L hand with adequate shoulder abduction and rotation. Target Visit 12
--- NOTE | 2023-02-22 10:16 | PTOPEVAL1 ---
Assessment and note entered by JT File, PT Evaluation Information Assessment Status Evaluation Diagnosis L shoulder stiffness, weakness Onset 01/27/23 Subjective Information patient reports he was told he may have a torn labrum. he reports he was working in his garage on 01/27/23. he reports he was carrying something up the steps. he reports he shoved his door open and it did not latch. he reports he went to set down what he was carrying. he reports he had to reach up with the L arm to hold the door open. he reports that is the only known overhead activity her performed that day. he reports later that day he was working with a heavy tool box. he reports the next morning he woke up with severe pain in the back. he reports there was a large knot on the back of his L shoulder. he reports since then he has been unable to lift his arm overhead or hold his arm away from his body. he reports he has had an xray and MRI. he reports no broken bones. the MRI shows no tear in the RTC, but a possible tear in the labrum. he reports no NTB in the L arm. he reports at times he will feel his L suspender is off his shoulder when it is not. Reported Pain Level Pain Score 0: Self Report Assessment PT Clinical Summary mr. rhodes is a 73 yo man who presents to skilled PT services for evaluation and treatment of L shoulder stiffness and weakness. he presents today with L shoulder weakness, decreased active rom of the L shoulder, and special testing that indicates injury to the L rotator cuff. however, MRI confirms only tendonitis of the L rotator cuff and no tearing, but he does have a labral tear. he would benefit from continued skilled PT to address his objective/functional deficits and progress toward a return to his prior level functional activity performance and quality of life. Plan of Care Interventions Electrical Stimulation,Hot Pack/Cold Pack,Manual Therapy,Neuro Re-education,Patient/Caregiver Educati,Therapeutic Activities,Therapeutic Exercise PT Services Indicated Yes Treatment Frequency and 3x weekly for 12 visits Duration These treatments will address the objective and functional deficits as defined above. The patient will be advanced safely and appropriately in order for the patient to progress towards his/her prior level of function. Additional exercises will be int
[2023-03-17 08:15] VITALS: BP_SYST 168
--- NOTE | 2023-03-31 10:25 | OPREHPOC ---
Outpatient Therapy Plan of Care This is a Multidisciplinary Plan of Care that may contain components documented by all disciplines (PT, OT, and ST.) PT Problem 1 PT Problem #1 Knowledge Deficit PT Goal 1 Goal 1. independent and compliant with HEP Target Visit 6 Progress Met PT Problem 2 PT Problem #2 Impaired Range of Motion PT Goal 1 Goal 1. active L shoulder flexion to 150 degrees or better x10 reps consecutively. met 2. active L shoulder abduction to 150 degrees or better x10 reps consecutively. not met Target Visit 12 Progress Partially Met PT Problem 3 PT Problem #3 Impaired Strength PT Goal 1 Goal 1. improve L shoulder flexion and abuction strength to 4/5 or better 2. improve L shoulder ER to 4/5 or better Target Visit 12 Progress Not Met PT Problem 4 PT Problem #4 Impaired Functional Mobil PT Goal 1 Goal 1. functional ER reach behind head to the cervical spine with the L hand with adequate shoulder abduction and rotation. Target Visit 12 Progress Met
--- NOTE | 2023-03-31 10:25 | PTOPDC ---
Assessment and note entered by JT File, PT Evaluation Information Assessment Status Discharge Diagnosis L shoulder stiffness, weakness Onset 01/27/23 Subjective Information patient reports he is doing his HEP at home. he reports he has noticed improvement in his strength and ability to lift the L arm up for more repetitions and full height prior to it fatiguing on him. Reported Pain Level Pain Score 0: Self Report Assessment PT Clinical Summary mr. rhodes presents to skilled PT for his 12th skilled therapy visit. he presents with improved shoulder rom and mm endurance. he continues to display weakness with MMT, but is able to lift the arm against gravity for greater repetitions with full rom. he has not met goals for abduction endurance or shoudler mmt strength, but is much improved compared to his initial evaluation. he will DC skilled PT to independent HEP at this time . Plan of Care PT Services Indicated Yes
== END 2023-03-31 15:52 | disposition home or self-care (01) ==
LOC: CHSPT 08:55
PROVIDERS: PCP Internal Medicine; Visit Provider Internal Medicine
DX: M25.612 Stiffness of left shoulder, not elsewhere classified (principal); M62.81 Muscle weakness (generalized)
CPT/HCPCS: 97110; 97140; 97150; 97161

== ENCOUNTER 2023-03-23 01:04 | Day surgery (SDC) | payer MEDICARE, OTHER, SELFPAY ==
[2023-03-10 11:57] VITALS: BMI 26.5
--- NOTE | 2023-03-21 10:46 | SUR.PREOP ---
Patient called regarding upcoming procedure. Message left on patient's voicemail regarding appointment times.
[2023-03-23 07:50] VITALS: BP 146/79; PULSE 93; RESP 18; TEMP 36.2; O2SAT 95
[2023-03-23] MEDS: LACTATED RINGERS 1,000 ML 150 ML IV CONT (07:58)
--- NOTE | 2023-03-23 08:44 | PM.IMHP ---
H&P: HPI History of Present Illness Date/Time: 03/23/23 08:44 Chief Complaint: History of colon polyps Narrative: This is a 73-year-old man who presents for colonoscopy. He has a history of colon polyps and last had a colonoscopy about 3 years ago. He denies any family history of colon cancer. He denies hematochezia or melena. Review of Systems Review of Systems: All systems reviewed & are unremarkable except as noted in HPI and below Constitutional: Constitutional: Denies chills, Denies fever(s), Denies headache(s) and Denies weight loss Eyes: Eyes: Denies change in vision ENT: Denies dizziness, Denies headache(s), Denies neck mass and Denies throat swelling Cardiovascular: Cardiovascular: Denies chest pain, Denies lightheadedness and Denies dyspnea Respiratory: Respiratory: Denies cough, Denies dyspnea and Denies wheezing Gastrointestinal: Gastrointestinal: Denies abdominal pain, Denies change in bowel habits, Denies nausea and Denies vomiting Genitourinary: Genitourinary: Denies hematuria and Denies dysuria Musculoskeletal: Musculoskeletal: Reports as per HPI Integumentary/Breasts: Skin/Breast: Reports as per HPI Neurologic: Denies dizziness and Denies headache(s) Allergic/Immunologic: Allergic/Immunologic: Denies throat swelling and Denies wheezing PMFSH Social History Social History Smoking packs per day: 1 Smoking cigarettes per day: 20.0 Years smoked: 50 Smoking pack-years: 50.00 Smoking status: Former smoker Tobacco type: cigarettes Alcohol intake: current Drinks per week: 4 Substance use: never Substance use type: does not use Living arrangements: with family Spiritual care concerns: No Meds Home Medications and Allergies Home Medications Medication Instructions Recorded Confirmed Type Vitamin C 1 tablet PO DAILY 02/24/23 03/23/23 History Vitamin D3 1 tablet PO DAILY 02/24/23 03/23/23 History albuterol sulfate 90 mcg/actuation 1 inh inhalation DIRECTED PRN 02/24/23 03/23/23 History aerosol inhaler Wheezing atorvastatin 40 mg tablet 40 mg PO DAILY 02/24/23 03/23/23 History calcium 1 tablet PO DAILY 02/24/23 03/23/23 History coQ10 (ubiquinol) 1 tablet PO DIRECTED 02/24/23 03/23/23 History fluticasone fur. 200 mcg-umeclid 1 inh inhalation DAILY 02/24/23 03/23/23 History 62.5 mcg-vilant 25 mcg inhalat.powder (Trelegy Ellipta) losartan 50 mg-hydrochlorothiazide 1 tablet PO DIRECTED 02/24/23 03/23/23 History 12.5 mg tablet omega-3 fatty acids 1 cap PO DIRECTED 02/24/23 03/23/23 History zolpidem 10 mg tablet 10 mg PO HS 02/24/23 03/23/23 History Allergies Allergy/AdvReac Type Severity Reaction Status Date / Time No Known Allergies Allergy Verified 03/23/23 07:49 Vital Signs Vital Signs - 24 hr 03/23/23 07:50 Temperature 36.2 C L Pulse Rate 93 Respiratory Rate 18 Blood Pressure 146/79 H Pulse Oximetry 95 Oxygen Delivery Room Air Exam Const: General: no acute distress and alert Orientation/consciousness: patient oriented x3 HENMT: Head: normocephalic and atraumatic Ears: hearing grossly normal bilaterally Face/Nose/Sinus: Normal nares present Mouth: Yes Normal oral and palatal mucosa present Eyes: Periorbital: periorbital findings normal Sclera: sclerae normal EOM: EOMs intact bilaterally Neck: Neck: normal visual inspection, no lymphadenopathy and trachea midline Chest: Chest palpation & inspection: normal inspection of the chest Resp: Effort & Inspection: normal respiratory effort Auscultation: clear to auscultation bilaterally Cardio: Jugular venous distension: no JVD Rate: regular rate Rhythm: regular rhythm Heart sounds: S1 normal heart sound present and S2 normal heart sound present Peripheral pulses: Peripheral pulses 2+ throughout GI: Inspection: normal to inspection GI Palp: Yes Soft to palpation, No Tenderness to palpation present (GI), No Guarding due to palpation present (GI) and No Rebound te
--- NOTE | 2023-03-23 08:51 | P.PNAN_ITS ---
Anes - Initial Pre Proc Eval Procedure: Operation Date: 03/23/23 09:00 Proposed Procedures p Colonoscopy - Edvin Sheikh DO Date/Time: 03/23/23 08:51 Surgeon: Edvin Sheikh DO Pre Op Diagnosis: hx of colon polyps Patient Data Age: 73 Gender: M Height: 1.78 m Weight: 83.1 kg Last Vital Signs Temp 97.1 F L 03/23/23 07:50 Pulse 93 03/23/23 07:50 Resp 18 03/23/23 07:50 BP 146/79 H 03/23/23 07:50 Pulse Ox 95 03/23/23 07:50 O2 Del Method Room Air 03/23/23 07:50 Allergies Allergy/AdvReac Type Severity Reaction Status Date / Time No Known Allergies Allergy Verified 03/23/23 07:49 Home Medications Medication Instructions Recorded Confirmed Type Vitamin C 1 tablet PO DAILY 02/24/23 03/23/23 History Vitamin D3 1 tablet PO DAILY 02/24/23 03/23/23 History albuterol sulfate 90 mcg/actuation 1 inh inhalation DIRECTED PRN 02/24/23 03/23/23 History aerosol inhaler Wheezing atorvastatin 40 mg tablet 40 mg PO DAILY 02/24/23 03/23/23 History calcium 1 tablet PO DAILY 02/24/23 03/23/23 History coQ10 (ubiquinol) 1 tablet PO DIRECTED 02/24/23 03/23/23 History fluticasone fur. 200 mcg-umeclid 1 inh inhalation DAILY 02/24/23 03/23/23 History 62.5 mcg-vilant 25 mcg inhalat.powder (Trelegy Ellipta) losartan 50 mg-hydrochlorothiazide 1 tablet PO DIRECTED 02/24/23 03/23/23 History 12.5 mg tablet omega-3 fatty acids 1 cap PO DIRECTED 02/24/23 03/23/23 History zolpidem 10 mg tablet 10 mg PO HS 02/24/23 03/23/23 History Patient hx anesthesia problems: none Family hx anesthesia problems: none Results Review: All pre-operative results and documents have been reviewed as part of the pre- operative evaluation. PMFSH Social History Social History Smoking packs per day: 1 Smoking cigarettes per day: 20.0 Years smoked: 50 Smoking pack-years: 50.00 Smoking status: Former smoker Tobacco type: cigarettes Alcohol intake: current Drinks per week: 4 Substance use: never Substance use type: does not use Living arrangements: with family Spiritual care concerns: No Anes - Eval Final PreProcedure Day of Procedure 03/23/23 08:51 Patient weight: normal Heart: regular rate and rhythm Lungs: clear to auscultation Airway: Mallampati scale class II Neurological: alert and oriented Last oral intake: >/= 8 hours ASA classification: III Emergent: no Anesthetic plan: proceed Anesthesia type and monitoring: general GIVS and standard monitoring Results Review: All pre-operative results and documents have been reviewed as part of the pre- operative evaluation. Informed Consent: The patient's anesthetic plan and its attendant risks and benefits were discussed with the patient/family/POA. Questions were solicited and answers provided to the satisfaction of the patient/family/POA.
[2023-03-23 09:53] VITALS: BP 122/76; PULSE 80; RESP 20; O2SAT 100
[2023-03-23 10:03] VITALS: BP 139/79; PULSE 75; RESP 20; O2SAT 100
[2023-03-23 10:13] VITALS: BP 142/81; PULSE 76; RESP 25; O2SAT 100
== END 2023-03-23 10:19 | disposition home or self-care (01) ==
PROVIDERS: PCP Internal Medicine; Visit Provider Surgery
PROC: 0DJD8ZZ Inspection of Lower Intestinal Tract, Via Natural or Artificial Opening Endoscopic (ICD-10-PCS; CPT 45378; principal; 2023-03-23 09:00)
DX: Z12.11 Encounter for screening for malignant neoplasm of colon (principal); D12.3 Benign neoplasm of transverse colon; K57.30 Diverticulosis of large intestine without perforation or abscess without bleeding; Z79.51 Long term (current) use of inhaled steroids; Z87.891 Personal history of nicotine dependence
CPT/HCPCS: 45380; 88305; J2704; J7120

== ENCOUNTER 2023-08-15 13:37 | Outpatient (CLI) | payer MEDICARE, OTHER, SELFPAY ==
--- NOTE | ~2023-08-15 | XR_ITS ---
EXAMINATION: XR chest 2V DATE: 08/15/2023 14:19 INDICATION: Dyspnea. TECHNIQUE: Frontal and lateral views of the chest were obtained. COMPARISON: Chest 2 views 01/30/2023, chest CT 11/07/2022 FINDINGS: The lungs are hyperexpanded. There are lucencies in the lungs, consistent with emphysema. T here is a chronic diffuse interstitial pattern in the lungs. There is stable scarring at the lung api mar. No pleural effusion or pneumothorax. The heart size is normal. IMPRESSION: 1. Stable diffuse lung disease, consistent with a combination of emphysema and chronic interstitial l dai disease. Reviewed, dictated and finalized at location A. IMPRESSION: 1. Stable diffuse lung disease, consistent with a combination of emphysema and chronic interstitial lung disease.
--- NOTE | 2023-08-15 13:56 | ECG_ITS ---
SEE SCANNED COPY FOR CONFIRMED REPORT MTDD
[2023-08-15 13:59] LABS: Appearance Urine Clear (Clear); Basophils Absolute Auto 0.09 K/mm3 (0.00-0.10); Basophils Percent Auto 1.1 % (0.0-1.0); Bilirubin Urine Negative (Negative); Blood Urine Negative (Negative); Color Urine Yellow (Yellow); Eosinophils Absolute Auto 0.22 K/mm3 (0.02-0.50); Eosinophils Percent Auto 2.7 % (1.0-6.0); Glucose Urine UA Negative (Negative); Hematocrit 36.8 % (37.0-46.0); Hemoglobin 12.7 g/dL (12.4-15.3); Immature Granulocyte Absolute 0.02 K/mm3 (0.00-0.00); Immature Granulocyte Percent A 0.2 % (0.0-0.0); Ketones Urine Negative (Negative); Leukocyte Esterase Ur Negative LEU/UL (Negative); Lymphocytes Absolute Auto 2.38 K/mm3 (1.10-4.50); Lymphocytes Percent Auto 29.2 % (18.0-42.0); Mean Corpuscular HGB Conc 34.5 g/dL (32-36); Mean Corpuscular Hemoglobin 31.6 pg (27.0-31.0); Mean Corpuscular Volume 91.5 fL (78.0-102.0); Mean Platelet Volume 8.9 fl (8.7-11.0); Monocytes Percent Auto 6.1 % (2.0-11.0); Neutrophils Absolute Auto 4.95 K/mm3 (1.70-7.20); Neutrophils Percent Auto 60.7 % (50.0-70.0); Nitrate Urine Negative (Negative); Platelet Count Result 285 K/mm3 (150-420); Protein Urine Negative (Negative); Red Blood Count 4.02 M/mm3 (4.70-6.10); Red Cell Distribution Width 12.2 % (11.6-14.4); Specific Grav Ur 1.015 (1.010-1.020); Urobilinogen Urine 0.2 mg/dL (0.2-1.0); White Blood Count 8.2 K/mm3 (4.8-10.8); pH Urine 7.5 (5.0-8.0)
[2023-08-15 14:02] LABS: Add Urine Microscopic? NO
[2023-08-15 14:18] LABS: Alanine Aminotransferase 24 U/L (16-63); Albumin Level 3.4 g/dL (3.4-5.0); Alkaline Phosphatase 101 U/L (46-116); Anion Gap 11 mmol/L (4-12); Aspartate Amino Transferase 21 U/L (15-37); Bilirubin,Total 0.7 mg/dL (0.00-1.00); Blood Urea Nitrogen 21 mg/dL (7-18); Calcium 9.3 mg/dL (8.5-10.1); Carbon Dioxide 27 mmol/L (21-32); Chloride 92 mmol/L (98-108); Creatine Kinase 174 U/L (39-308); Estimated Glomerular Filt Rate > 60; Glucose 104 mg/dL (70-99); NT Pro B Type Natriuretic Pept 407 pg/mL (0-125); Osmolality Calculated 273 mOsm/kg (285-295); Potassium 3.9 mmol/L (3.5-5.1); Sodium 130 mmol/L (136-145); Total Protein 7.4 g/dL (6.4-8.2); Troponin I 12.7 ng/L (0.00-60.4)
[2023-08-15 15:21] LABS: D Dimer 0.36 mg/L (0.19-0.50)
== END 2023-08-15 13:38 | disposition home or self-care (01) ==
LOC: CHSLAB 13:39
PROVIDERS: PCP Internal Medicine; Visit Provider Internal Medicine
DX: R06.00 Dyspnea, unspecified (principal); R42 Dizziness and giddiness; J98.4 Other disorders of lung
CPT/HCPCS: 36415; 71046; 80053; 81003; 82550; 82553; 83880; 84484; 85025; 85380; 93005

== ENCOUNTER 2023-08-21 10:17 | Outpatient (CLI) | payer MEDICARE, SELFPAY ==
[2023-08-21 12:00] LABS: Anion Gap 10 mmol/L (4-12); Blood Urea Nitrogen 22 mg/dL (7-18); Carbon Dioxide 27 mmol/L (21-32); Chloride 99 mmol/L (98-108); Estimated Glomerular Filt Rate > 60; Glucose 112 mg/dL (70-99); NT Pro B Type Natriuretic Pept 504 pg/mL (0-125); Osmolality Calculated 286 mOsm/kg (285-295); Potassium 4.3 mmol/L (3.5-5.1); Sodium 136 mmol/L (136-145)
== END 2023-08-21 10:18 | disposition home or self-care (01) ==
LOC: CHSLAB 10:19
PROVIDERS: PCP Internal Medicine; Visit Provider Internal Medicine
DX: R06.00 Dyspnea, unspecified (principal); E87.1 Hypo-osmolality and hyponatremia
CPT/HCPCS: 36415; 80048; 83880

== ENCOUNTER 2023-11-08 08:21 | Outpatient (CLI) | payer MEDICARE, OTHER, SELFPAY ==
--- NOTE | ~2023-11-08 | US_ITS ---
EXAMINATION: US aorta DATE: 11/08/2023 08:49 INDICATION: Abdominal bruit. Family history of abdominal aortic aneurysm. TECHNIQUE: Grayscale, color Doppler, and pulsed Doppler images of the aorta and common iliac arteries were obtained. COMPARISON: None. FINDINGS: The aorta is normal in caliber and demonstrates mild atherosclerosis. The right common iliac artery i s normal in caliber. The left common iliac artery is normal in caliber. IMPRESSION: 1. No abdominal aortic aneurysm. Reviewed, dictated and finalized at location A.
== END 2023-11-08 08:22 | disposition home or self-care (01) ==
LOC: CHSIMG 08:22
PROVIDERS: PCP Internal Medicine; Visit Provider Internal Medicine
DX: R09.89 Other specified symptoms and signs involving the circulatory and respiratory systems (principal)
CPT/HCPCS: 76706; 76775

== ENCOUNTER 2024-05-06 15:18 | Outpatient (CLI) | payer MEDICARE, OTHER, SELFPAY ==
--- NOTE | ~2024-05-06 | CT_ITS ---
CLINICAL INDICATION: Acute abdominal pain COMPARISON: None TECHNIQUE: Multiple contiguous axial images of the abdomen and pelvis were performed following the ad ministration of with 100 mL Omnipaque-350 intravenous contrast The dose-length product (DLP) was 687.23 mGy-cm. Automated exposure control and iterative reconstruction technique were employed. FINDINGS/OBSERVATIONS: Visualized lower thorax: The bilateral lung bases are clear. The heart is of normal size, without pericardial effusion. Small hiatal hernia is present. Liver: A 7 mm focus of decreased attenuation is identified within segment 6 of the liver, likely a simple cy st. The remainder of the liver is unremarkable. Gallbladder and biliary system: The gallbladder is only minimally distended, and otherwise unremarkable. Pancreas: Fatty atrophy of the pancreas is demonstrated without ductal dilatation. Spleen: The spleen enhances homogeneously and is not enlarged measuring 6 cm in longitudinal dimension. Kidneys: The bilateral kidneys enhance symmetrically without hydronephrosis or renal calculi. Adrenal glands: Unremarkable. Gastrointestinal tract: Trace mural thickening is identified within the sigmoid colon with extensive surrounding inflammatory change, findings suggesting acute/early diverticulitis. No drainable fluid collection is identified. No gross perforation is noted. Appendix: The appendix is not definitively visualized. However, no pericecal inflammatory change is identified suggest the presence of acute appendicitis. Vasculature: Densely calcified atherosclerotic disease. Lymph nodes: No pathologically enlarged or morphologically suspicious lymph nodes within the retroperitoneum or at the root of the mesentery. Pelvic structures: The bladder is minimally distended, and otherwise unremarkable. The prostate gland is not enlarged. Body wall and musculoskeletal: Degenerative disease is identified at the level of L4/L5 with osteophyte formation and a disc space n arrowing. Vacuum phenomenon is also noted at this level. Fat-containing umbilical hernia is present. IMPRESSION: Findings within the sigmoid colon which are most consistent with acute/early diverticulitis. Reviewed, dictated and finalized at location A. LSTERY CLEANER IMPRESSION: Findings within the sigmoid colon which are most consistent with acute/early di verticulitis.
[2024-05-06 15:57] LABS: Estimated Glomerular Filt Rate 55
--- OUTSIDE RECORDS SUMMARY | 2024-05-06 16:09 | XMS_ITS | Encounter Summary ---
Author Organization [facility] Address [address] [place] [address] Phone Care Team Providers Care Seed District Sales Manager Name Role Phone Suzy Mills MD Primary Care Provider + [phone] Pramod Hill MD Unavailable [phone] Encounter Details Date Type Department Care Team (Latest Contact Info) Description 01/20/2023 Orders Only [facility] Scanning, Provider Social History Tobacco Use Types Packs/Day Years Used Date Smoking Tobacco: Former Cigarettes 1 50 1 04/24/1968 - 2019 Smokeless Tobacco: Current Snuff Sex and Gender Information Value Date Recorded Sex Assigned at Not on file Legal Sex Male 11:06 AM RANGE FEEDER Gender Identity Male 02/16/2021 7:39 AM RANGE FEEDER Sexual Orientation Straight 02/16/2021 7: 39 AM RANGE FEEDER documented as of this encounter Plan of Treatment Not on file documented as of this encounter Procedures Procedure Name Priority Date/Time Associated Diagnosis Comments SCAN - RADIOLOGY/IMAGING 01/20/2023 documented in this encounter Results * SCAN - RADIOLOGY/IMAGING (01/20/2023) Anatomical Region Laterality Modality Other us Provider Scanning Final Result documented in this encounter Visit Diagnoses Not on filedocumented in this encounter Care Teams Seed District Sales Manager Relationship Specialty Start Date End Date Suzy Mills MD [address] [place] [address] PCP - General Internal Medicine 02/22/21 Pramod Hill MD [address] [facility] IM PULMONARY AND [facility], [address] [address] Referring Physician Pulmonary Disease 05/12/23 documented as of this encounter
--- OUTSIDE RECORDS SUMMARY | 2024-05-06 16:09 | XMS_ITS | Referral Summary ---
Author Organization [facility] Address [address] [place] [address] Care Team Providers Care It Help Desk Technician Name Role Phone Suzy Mills MD Primary Care Provider + [phone] Pramod Hill MD Unavailable [phone] Allergies Active Allergy Reactions Criticality Noted Date Comments Levofloxacin Other (See comments) Low 01/13/2023 Joint issues Medications coenzyme Q10 100 mg capsule Take by mouth search director before breakfast Active KRILL OIL ORAL Take 2,000 mg by mouth 2 (two) times a day Active ipratropium-albut Catalino (DUO-NEB) 0.5-2.5 mg/3 mL nebulizer solutionIndicatio ns:Chronic Obstructive Pulmonary Disease with Bronchospasms Take by nebulization every 6 (six) hours Active albuterol HFA (PROVENTIL HFA,VENTOLIN HFA,PROAIR HFA) 90 mcg/actuation inhaler Inhale 2 puffs every 6 (six) hours as needed for wheezing Active zolpidem (AMBIEN) 10 mg tablet 2 12/26/19 23 Active atorvastatin (LIPITOR) 40 mg tablet Take 1 tablet (40 mg total) by mouth daily Active guaiFENesin (ROBITUSSIN) 400 mg tablet 05/06/19 24 Active losartan-hydroCHL OROthiazide (HYZAAR) 50-12.5 mg per tablet 02/08/20 23 Active MAGNESIUM MAL-POT CIT-TAUR-B6 ORAL 05/06/19 24 Active mirtazapine (REMERON) 7.5 mg tablet 10/22/19 24 Active sodium chloride 3 % nebulizer solution Take by nebulization as needed for cough Active Trelegy Ellipta 200-62.5-25 mcg inhaler INHALE ONE PUFF BY MOUTH DAILY 60 each 5 01/26/20 Active Active Problems Problem Noted Date Diagnosed Date Pulmonary fibrosis ([facility] 11/10/2023 ILD (interstitial lung disease) ([facility] 2023 Cough 03/08/2023 COPD (chronic obstructive pu lmonary disease) case management patient 01/13/2023 Solitary pulmonary nodule 2021 Resolved Problems Problem Noted Date Diagnosed Date Resolved Date Chronic respiratory failure, unspecified whether with hypoxia or hypercapnia 05/12/2023 08/0 05/2023 Immunizations Name Administration Dates Next Due Influenza, Quad, Adjuvantate d, Intramuscular 12/09/2022 Influenza, Quadrivalent, Spl it, Intramuscular 03/03/2017 Influenza, Quadrivalent, Spl it, Preservative Free, Intramuscular 12/24/2020,02/04/2019,01/12/2018,03/09 Influenza, Trivalent, IM (MDV) 02/24/2014,2012 Influenza, Trivalent, Preser vative Free, Intramuscular 12/29/2014 Pneumococcal Conjugate PCV 13 12/29/2014 Pneumococcal Polysaccharide PPV23 12/24/2020, RSV Vaccine, Pref, Recombina nt, Subunit, Adjuvanted, PF, IM (Arexvy) 03/13/2023 Tdap 12/05/2022,09/10/2010 ZOSTER LIVE 04/10/2011 ZOSTER Recombinant 03/17/2021,01/04/2021 Social History Tobacco Use Types Packs/Day Years Used Date Smoking Tobacco: Former Cigarettes 1 50 1 04/24/1968 - 2019 Smokeless Tobacco: Current Snuff Tobacco Cessation:Ready to Q uit: Not Asked; Counseling Given: Not Answered AUDIT-C Answer Date Recorded Q1: How often do you have a drink containing alc ohol? 2-3 times a week 03/08/2023 Q2: How many drinks containi ng alcohol do you have on a typical day when you are drinking? 1 or 2 03/08/2023 Q3: How often do you have si x or more drinks on one occasion? Never 03/08/2023 Personal Safety Answer Date Recorded Have you ever been in or are you currently in a harmful physical or emotional relationship or is someone making you feel afraid or unsafe? Denies 03/08/2023 Sex and Gender Information Value Date Recorded Sex Assigned at Not on file Legal Sex Male 11:06 AM AUTO SELF SERVICE STATION ATTENDANT Gender Identity Male 02/16/2021 7:39 AM AUTO SELF SERVICE STATION ATTENDANT Sexual Orientation Straight 02/16/2021 7: 39 AM AUTO SELF SERVICE STATION ATTENDANT Last Filed Vital Signs Vital Sign Reading Time Taken Comments Blood Pressure 135/95 11/10/2023 12:21 PM CDT Pulse 100 11/10/2023 12:21 PM CDT Temperature 36.6 ??C (97.8 ??F) 11/10/2023 12:21 PM C DT Respiratory Rate 18 11/10/2023 12:21 PM CDT Oxygen Saturation 93% 11/10/2023 12:21 PM CDT Inhaled Oxygen Concentration - - Weight 89.4 kg (197 lb) 11/10/2023 12:21 PM CDT Height 180.3 cm (5' 11 ) 11/10/2023 12:21 PM CDT Body Mass Index 27.48 11/10/2023 12:21 PM CDT Plan of Treatment Not on file Insurance MEDICARE [facility] MEDICARE [facility] [employer] [employer] Advance Directives For more information, please contact: [phone] * Full Code (Latest Code Status on File) Date Activated Date Inactivated Comments 03/08/2023 8:48 AM 03/09/2023 4:48 AM Care Teams It Help Desk Technician Relationship Specialty Start Date End Date Suzy Mills MD [address] [place] [address] PCP - General Internal Medicine 02/22/21 Pramod Hill MD [address] [facility] DIV IM PULMONARY AND CCM, [address] [address] Referring Physician Pulmonary Disease 05/12/23
--- OUTSIDE RECORDS SUMMARY | 2024-05-06 16:09 | XMS_ITS | Clinical Summary ---
Author Organization [facility] Address [facility] [place] [address] Care Team Providers Care Editor Sound Name Role Phone Suzy Mills MD Primary Care Provider + [phone] Pramod Hill MD Unavailable [phone] Allergies Active Allergy Reactions Criticality Noted Date Comments Levofloxacin Other (See comments) Low 01/13/2023 Joint issues Medications coenzyme Q10 100 mg capsule Take by mouth skip miner blasting before breakfast Active KRILL OIL ORAL Take [...] Problem Noted Date Diagnosed Date Pulmonary fibrosis ([facility]) 11/10/2023 ILD (interstitial lung disease) ([facility]) 2023 Cough 03/08/2023 COPD (chronic obstructive pu [...] 12/05/2022,09/10/2010 ZOSTER LIVE 04/10/2011 ZOSTER Recombinant 03/17/2021,01/04/2021 Surgical History Surgery Date Site/Laterality Comments NO PAST SURGERIES KNEE ARTHROCENTESIS Left BASAL CELL CARCINOMA EXCISION Medical History Medical History Date Comments Bronchitis Emphysema lung (HCC) Hypertension Hypercholesteremia Pneumonia Hypercholesteremia Cancer ([facility]) (HCC) Family History Medical History Relation Name Comments No Known Problems Father No Known Problems Mother Relation Name Status Comments Father Mother Social History Tobacco Use Types Packs/Day Years [...] on file Legal Sex Male 11:06 AM SCALE TECHNICIAN Gender Identity Male 02/16/2021 7:39 AM SCALE TECHNICIAN Sexual Orientation Straight 02/16/2021 7: 39 AM SCALE TECHNICIAN Obstetrics History Last Filed Vital Signs Vital Sign Reading [...] 11/10/2023 12:21 PM CDT Plan of Treatment Health Maintenance Due Date Last Done Comments Colon Cancer Screening-Colonoscopy 1950 Depression Screening 1950 Hepatitis C Screening 1950 Hepatitis B Screening 02/21/1970 Lung Cancer Screening 02/21/2002 Abdominal Aortic Aneurysm (A AA) Screen 02/21/2017 Well Visit 65+ 02/21/2017 Covid-19 Vaccine (5 - 4-2 5 season) 2023 01/14/2022, 2021, 06/19/2020, Additional history exists Influenza Vaccine (#1) 2023 , 12/24/2020, 02/04/2019, Additional history exists Fall Risk Assessment 03/08/2024 03/08/2023 DTaP/Tdap/Td Vaccine (3 - Td or Tdap) 12/05/2032 12/05/2022, 09/10/2010 Pneumococcal vaccine 65+ Completed 021, 03/09/2016, 12/29/2014 Zoster Vaccine Completed 03/17/2021, 12/10, 04/10/2011 Insurance MEDICARE [facility] MEDICARE [facility] Advance Directives For more information, please contact: [phone] * Full Code (Latest Code Status on File) Date Activated Date Inactivated Comments 03/08/2023 8:48 AM 03/09/2023 4:48 AM Care Teams Editor Sound Relationship Specialty Start Date End Date Suzy Mills MD [address] [place] [address] PCP - General Internal Medicine 02/22/21 Pramod Hill MD [address] [facility] DIV IM PULMONARY AND [facility], [address] [address] Referring Physician Pulmonary Disease 05/12/23
--- OUTSIDE RECORDS SUMMARY | 2024-05-06 16:09 | XMS_ITS | Clinical Summary ---
Author Organization [facility] Address [address], [facility] [address] [place] [address] Phone Care Team Providers Care Digital Press Operator Name Role Phone Suzy Mills MD Primary Care Provider [phone] Allergies No known active allergies Medications pravastatin (PRAVACHOL) 40 MG Tablet Take 40 mg by mouth every morning. Active budesonide-form oterol fumarate (SYMBICORT) 160-4.5 MCG/ACT Aerosol take 2 Puffs by inhalation 2 times daily. Active Ipratropium-Alb uterol (COMBIVENT IN) take 1 Puff by inhalation 2 times daily. 20-100mcg Active Coenzyme Q10 (COQ10) 100 MG Capsule Take by mouth every morning. Active KRILL OIL PO Take 2,000 mg by mouth 2 times daily. Active Family History Medical History Relation Name Comments Chronic Obstructive Pulmonary Disease Brother Heart Disease Father Heart Surgery Father Bypass High Cholesterol Father Dementia Mother Relation Name Status Comments Brother Father Mother Social History Tobacco Use Types Packs/Day Years Used Date Smoking Tobacco: Former Cigarettes 2 50 1 967 - 2017 Smokeless Tobacco: Current Snuff Alcohol Use Standard Drinks/Week Comments Yes 6 (1 standard drink = 0.6 oz pur e alcohol) Sex and Gender Information Value Date Recorded Sex Assigned at Not on file Legal Sex Male 7:08 AM COOK HELPER DESSERT Gender Identity Not on file Sexual Orientation Not on file 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 Not on file Not on file Not on file Last Filed Vital Signs Vital Sign Reading Time Taken Comments Blood Pressure 128/93 06/24/2019 12:11 PM CDT Pulse 84 06/24/2019 12:11 PM CDT Temperature 36 ??C (96.8 ??F) 06/24/2019 12:11 PM CDT Respiratory Rate 17 06/24/2019 12:11 PM CDT Oxygen Saturation 98% 06/24/2019 12:11 PM CDT Inhaled Oxygen Concentration - - Weight 93 kg (205 lb) 06/03/2019 11:00 AM COOK HELPER DESSERT Height 185.4 cm (6' 1 ) 06/03/2019 11:00 AM COOK HELPER DESSERT Body Mass Index 27.05 06/03/2019 11:00 AM COOK HELPER DESSERT Plan of Treatment Health Maintenance Due Date Last Done Comments Hepatitis C Virus (HCV) Screening 1950 Cologuard 02/21/2002 Immunochemical Fecal Occult Blood 02/21/2002 Zoster Immunization (2 of 3) 06/05/2011 04/10/2011 Pneumococcal Immunization (50+ years) (3 of 3 - PCV20 or PCV21) 03/09/2021 03/09/2016, 12/29/2014 Colonoscopy 06/23/2022 06/24/2019, 03/25/2019 Colorectal Cancer Screening 06/23/2022 Influenza Immunization (#1) 12/10/202301/09, 01/12/2018, 03/03/2017, Additional history exists SARS-COV-2 Immunization ( season) 2023 2021, 06/19/2020, 05/29/2020 Respiratory Syncytial Virus (RSV) Immunization (Adult) (1 - 1-dose 75+ series) 02/21/2027 06/24/2019, 03/25/2019 DTaP/Tdap/Td Immunization Discontinued 09/10/2010 TdaP Immunization Completed 09/10/2010 Pneumococcal Immunization Combined Discontinued 03/09/2016, 12/29/2014 Hepatitis B Immunization Aged Out No longer eligible based on patient's age to complete this topic Meningococcal Immunization (ACWY) Aged Out No longer eligible based on patient's age to complete this topic Rotavirus Immunization Aged Out No lo nger eligible based on patient's age to complete this topic Insurance MEDICARE Care Teams Digital Press Operator Relationship Specialty Start Date End Date Suzy Mills MD [address] [place] [address] PCP - General Internal Medicine 02/26/19
[2024-05-06 16:58] LABS: Appearance Urine Clear (Clear); Basophils Percent Auto 1.2 % (0.0-1.0); Bilirubin Urine Negative (Negative); Blood Urine Negative (Negative); Color Urine Yellow (Yellow); Eosinophils Absolute Auto 0.19 K/mm3 (0.02-0.50); Eosinophils Percent Auto 2.2 % (1.0-6.0); Glucose Urine UA Negative (Negative); Hematocrit 45.7 % (37.0-46.0); Hemoglobin 15.3 g/dL (12.4-15.3); Immature Granulocyte Absolute 0.02 K/mm3 (0.00-0.00); Immature Granulocyte Percent A 0.2 % (0.0-0.0); Ketones Urine Negative (Negative); Leukocyte Esterase Ur Negative (Negative); Lymphocytes Absolute Auto 2.94 K/mm3 (1.10-4.50); Lymphocytes Percent Auto 34.7 % (18.0-42.0); Mean Corpuscular HGB Conc 33.5 g/dL (32-36); Mean Corpuscular Hemoglobin 31.3 pg (27.0-31.0); Mean Corpuscular Volume 93.5 fL (78.0-102.0); Mean Platelet Volume 9.9 fl (8.7-11.0); Monocytes Absolute Auto 0.59 K/mm3 (0.10-0.90); Neutrophils Absolute Auto 4.63 K/mm3 (1.70-7.20); Neutrophils Percent Auto 54.7 % (50.0-70.0); Nitrate Urine Negative (Negative); Platelet Count Result 265 K/mm3 (150-420); Red Blood Count 4.89 M/mm3 (4.70-6.10); Red Cell Distribution Width 12.7 % (11.6-14.4); White Blood Count 8.5 K/mm3 (4.8-10.8)
[2024-05-06 17:01] LABS: Add Urine Microscopic? NO; Protein Urine Negative (Negative)
[2024-05-06 17:22] LABS: Hemoglobin A1C 5.7 % (<5.7)
[2024-05-06 17:23] LABS: Alanine Aminotransferase 26 U/L (16-63); Albumin Level 3.6 g/dL (3.4-5.0); Alkaline Phosphatase 114 U/L (46-116); Anion Gap 10 mmol/L (4-12); Aspartate Amino Transferase 17 U/L (15-37); Bilirubin,Total 0.6 mg/dL (0.00-1.00); Calcium 9.7 mg/dL (8.5-10.1); Carbon Dioxide 28 mmol/L (21-32); Chloride 102 mmol/L (98-108); Cholesterol 169 mg/dL (0-200); Creatine Kinase 39 U/L (39-308); Glucose 125 mg/dL (70-99); HDL Direct 53 mg/dL (40-60); LDL Cholesterol Calculated 102 mg/dL (<130); Magnesium 1.7 mg/dL (1.8-2.4); Potassium 5.2 mmol/L (3.5-5.1); Sodium 140 mmol/L (136-145); Total Protein 7.5 g/dL (6.4-8.2); Triglycerides 70 mg/dL (0-150)
[2024-05-06 17:47] LABS: Blood Urea Nitrogen 21 mg/dL (7-18); Free T3 3.39 pg/mL (2.18-3.98); Free T4 Free Thyroxine 1.19 ng/dL (0.76-1.46); Osmolality Calculated 294 mOsm/kg (285-295); Thyroid Stimulating Hormone 1.46 uIU/mL (0.36-3.74)
== END 2024-05-06 15:19 | disposition home or self-care (01) ==
LOC: CHSIMG 15:21
PROVIDERS: PCP Internal Medicine; Visit Provider Internal Medicine
DX: R73.01 Impaired fasting glucose (principal); E78.2 Mixed hyperlipidemia; I10 Essential (primary) hypertension; M81.8 Other osteoporosis without current pathological fracture; R19.4 Change in bowel habit; J84.9 Interstitial pulmonary disease, unspecified
CPT/HCPCS: 74177; 80053; 80061; 81003; 82550; 83036; 83735; 84439; 84443; 84481; 85025; Q9967

== ENCOUNTER 2024-05-23 16:27 | Outpatient (CLI) | payer MEDICARE, OTHER, SELFPAY ==
--- NOTE | ~2024-05-23 | CT_ITS ---
EXAMINATION:CT chest high resolution wo vt DATE: 05/23/2024 16:43 INDICATION: Pulmonary nodules. TECHNIQUE: Computed tomography (CT) of the chest was performed without intravenous contrast. Automate d exposure control and iterative reconstruction technique were employed. The dose-length product (DLP ) was 216.99 mGy-cm. COMPARISON: Chest CT 11/07/2022 FINDINGS: There is severe emphysema. There is widespread septal thickening in the lungs with a periph eral predominance. No pleural effusion. The heart size is normal. There are coronary artery calcifica tions. No pericardial effusion. There is a 10 mm cyst in the liver. There is mild thoracic spondylosi s and severe cervical spondylosis. IMPRESSION: 1. Severe diffuse lung disease, likely a combination of emphysema and chronic interstitial lung disea se in a pattern of usual interstitial pneumonia (UIP). Reviewed, dictated and finalized at location A. OMATIC INTERPRETER IMPRESSION: 1. Severe diffuse lung disease, likely a combination of emphysema and chronic i nterstitial lung disease in a pattern of usual interstitial pneumonia (UIP).
--- OUTSIDE RECORDS SUMMARY | 2024-05-23 16:33 | XMS_ITS | Referral Summary ---
Author Organization [facility] Address [address] [place] [address] Care Team Providers Care Cnc Service Technician Name Role Phone Suzy Mills MD Primary Care Provider + [phone] Pramod Hill MD Unavailable [phone] Allergies Active Allergy Reactions Criticality Noted Date Comments Levofloxacin Other (See comments) Low 01/13/2023 Joint issues Medications coenzyme Q10 100 mg capsule Take by mouth tool dresser before breakfast Active KRILL OIL ORAL Take [...] Problem Noted Date Diagnosed Date Pulmonary fibrosis [facility]) 11/10/2023 ILD (interstitial lung disease) ([facility]) 2023 Cough 03/08/2023 COPD (chronic obstructive pu [...] on file Legal Sex Male 11:06 AM RECORDS ASSISTANT Gender Identity Male 02/16/2021 7:39 AM RECORDS ASSISTANT Sexual Orientation Straight 02/16/2021 7: 39 AM RECORDS ASSISTANT Last Filed Vital Signs Vital Sign Reading Time Taken Comments Blood Pressure 135/95 11/10/2023 12:21 PM CDT Pulse 100 11/10/2023 12:21 PM CDT Temperature 36.6 C (97.8 F) 11/10/2023 12:21 PM CDT Respiratory Rate 18 11/10/2023 12:21 PM CDT Oxygen Saturation 93% 11/10/2023 12:21 PM CDT Inhaled Oxygen Concentration - - Weight 89.4 kg (197 lb) 11/10/2023 12:21 PM CDT Height 180.3 cm (5' 11 ) 11/10/2023 12:21 PM CDT Body Mass Index 27.48 11/10/2023 12:21 PM CDT Plan of Treatment Not on file Insurance MEDICARE [facility] MEDICARE [facility] LIFE Advance Directives For more information, please contact: [phone] * Full Code (Latest Code Status on File) Date Activated Date Inactivated Comments 03/08/2023 8:48 AM 03/09/2023 4:48 AM Care Teams Cnc Service Technician Relationship Specialty Start Date End Date Suzy Mills MD [address] [place] [address] PCP - General Internal Medicine 02/22/21 Pramod Hill MD [address] [facility] [address] DIV IM PULMONARY AND [facility], [address] [address] Referring Physician Pulmonary Disease 05/12/23
--- OUTSIDE RECORDS SUMMARY | 2024-05-23 16:33 | XMS_ITS | Clinical Summary ---
Author Organization [facility] Address [address] [place] [address] Care Team Providers Care Game Room Attendant Name Role Phone Suzy Mills MD Primary Care Provider + [phone] Pramod Hill MD Unavailable [phone] Allergies Active Allergy Reactions Criticality Noted Date Comments Levofloxacin Other (See comments) Low 01/13/2023 Joint issues Medications coenzyme Q10 100 mg capsule Take by mouth computer graphic artist before breakfast Active KRILL OIL ORAL Take [...] Problem Noted Date Diagnosed Date Pulmonary fibrosis ([facility]) 11/10/2023 ILD (interstitial lung disease) ([facility]) 2023 Cough 03/08/2023 COPD (chronic obstructive pu [...] lung (HCC) Hypertension Hypercholesteremia Pneumonia Hypercholesteremia Cancer ([facility]) (HCC) Family History Medical History Relation Name [...] on file Legal Sex Male 11:06 AM SELF PAY SPECIALIST Gender Identity Male 02/16/2021 7:39 AM SELF PAY SPECIALIST Sexual Orientation Straight 02/16/2021 7: 39 AM SELF PAY SPECIALIST Obstetrics History Last Filed Vital Signs Vital [...] Visit 65+ 02/21/2017 Covid-19 Vaccine (5 - 2023-2 5 season) 2023 01/14/2022, 2021, 06/19/2020, Additional history exists Influenza Vaccine (#1) 2023 , 12/24/2020, 02/04/2019, Additional history exists Fall Risk Assessment 03/08/2024 03/08/2023 DTaP/Tdap/Td Vaccine (3 - Td or Tdap) 12/05/2032 12/05/2022, 09/10/2010 Pneumococcal vaccine 65+ Completed 021, 03/09/2016, 12/29/2014 Zoster Vaccine Completed 03/17/2021, 12/10, 04/10/2011 Insurance MEDICARE [facility] MEDICARE [facility] [employer] Advance Directives For more information, please contact: [phone] * Full Code (Latest Code Status on File) Date Activated Date Inactivated Comments 03/08/2023 8:48 AM 03/09/2023 4:48 AM Care Teams Game Room Attendant Relationship Specialty Start Date End Date Suzy Mills MD [address] [place] [address] PCP - General Internal Medicine 02/22/21 Pramod Hill MD [address] [facility]ULMONARY AND [facility], [address] [address] Referring Physician Pulmonary Disease 05/12/23
--- OUTSIDE RECORDS SUMMARY | 2024-05-23 16:33 | XMS_ITS | Encounter Summary ---
Author Organization [facility] Address [address] [place] [address] Phone Care Team Providers Care Electronics Hardware Design Engineer Name Role Phone Suzy Mills MD Primary Care Provider + [phone] Pramod Hill MD Unavailable [phone] Encounter Details Date Type Department Care Team (Latest Contact Info) Description 01/20/2023 Orders Only [facility] Scanning, Provider Social History Tobacco Use Types Packs/Day Years Used Date Smoking Tobacco: Former Cigarettes 1 50 1 04/24/1968 - 2019 Smokeless Tobacco: Current Snuff Sex and Gender Information Value Date Recorded Sex Assigned at Not on file Legal Sex Male 11:06 AM EXECUTIVE PRODUCER Gender Identity Male 02/16/2021 7:39 AM EXECUTIVE PRODUCER Sexual Orientation Straight 02/16/2021 7: 39 AM EXECUTIVE PRODUCER documented as of this encounter Plan of Treatment Not on file documented as of this encounter Procedures Procedure Name Priority Date/Time Associated Diagnosis Comments SCAN - RADIOLOGY/IMAGING 01/20/2023 documented in this encounter Results * SCAN - RADIOLOGY/IMAGING (01/20/2023) Anatomical Region Laterality Modality Other us Provider Scanning Final Result documented in this encounter Visit Diagnoses Not on filedocumented in this encounter Care Teams Electronics Hardware Design Engineer Relationship Specialty Start Date End Date Suzy Mills MD [address] [place] [address] PCP - General Internal Medicine 02/22/21 Pramod Hill MD [address] [facility] DIV IM PULMONARY AND CCM, [address] [address] Referring Physician Pulmonary Disease 05/12/23 documented as of this encounter
--- OUTSIDE RECORDS SUMMARY | 2024-05-23 16:33 | XMS_ITS | Clinical Summary ---
Author Organization 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 Not on file Not on file Not on file Last Filed Vital Signs Vital Sign Reading Time Taken Comments Blood Pressure 128/93 06/24/2019 12:11 PM CDT Pulse 84 06/24/2019 12:11 PM CDT Temperature 36 C (96.8 F) 06/24/2019 12:11 PM CDT Respiratory Rate 17 06/24/2019 12:11 PM CDT Oxygen Saturation 98% 06/24/2019 12:11 PM CDT Inhaled Oxygen Concentration - - Weight 93 kg (205 lb) 06/03/2019 11:00 AM ASSOCIATE PROFESSOR OF LITERATURE Height 185.4 cm (6' 1 ) 06/03/2019 11:00 AM ASSOCIATE PROFESSOR OF LITERATURE Body Mass Index 27.05 06/03/2019 11:00 AM ASSOCIATE PROFESSOR OF LITERATURE Plan of Treatment Health Maintenance Due Date [...] complete this topic Insurance MEDICARE Care Teams Financial Planning Adviser Relationship Specialty Start Date End Date Suzy Mills MD [address] [place] [address] PCP - General Internal Medicine 02/26/19
== END 2024-05-23 16:28 | disposition home or self-care (01) ==
PROVIDERS: PCP Internal Medicine; Visit Provider Internal Medicine
DX: R91.8 Other nonspecific abnormal finding of lung field (principal); J98.4 Other disorders of lung
CPT/HCPCS: 71250

== ENCOUNTER 2024-06-11 13:48 | Outpatient (CLI) | payer MEDICARE, OTHER, SELFPAY ==
[2024-06-11 14:06] LABS: Hematocrit 43.9 % (37.0-46.0); Hemoglobin 14.7 g/dL (12.4-15.3); Mean Corpuscular HGB Conc 33.5 g/dL (32-36); Mean Corpuscular Hemoglobin 31.5 pg (27.0-31.0); Mean Corpuscular Volume 94.2 fL (78.0-102.0); Mean Platelet Volume 9.1 fl (8.7-11.0); Platelet Count Result 278 K/mm3 (150-420); Red Blood Count 4.66 M/mm3 (4.70-6.10); Red Cell Distribution Width 12.7 % (11.6-14.4); White Blood Count 8.1 K/mm3 (4.8-10.8)
[2024-06-11 14:31] LABS: Anion Gap 11 mmol/L (4-12); Blood Urea Nitrogen 12 mg/dL (7-18); Carbon Dioxide 26 mmol/L (21-32); Chloride 100 mmol/L (98-108); D Dimer 1.61 mg/L (0.19-0.50); Estimated Glomerular Filt Rate > 60; Glucose 115 mg/dL (70-99); NT Pro B Type Natriuretic Pept 504 pg/mL (0-125); Osmolality Calculated 284 mOsm/kg (285-295); Potassium 4.6 mmol/L (3.5-5.1); Sodium 137 mmol/L (136-145)
== END 2024-06-11 13:49 | disposition home or self-care (01) ==
PROVIDERS: PCP Internal Medicine; Visit Provider Internal Medicine
DX: J44.1 Chronic obstructive pulmonary disease with (acute) exacerbation (principal); R06.00 Dyspnea, unspecified
CPT/HCPCS: 36415; 71046; 71275; 80048; 83880; 85027; 85380; Q9967